=== PATIENT | female | born 1945 | race Caucasian/White ===

== ENCOUNTER 2017-10-15 13:20 | Inpatient (IN) | payer MEDICARE, MEDICAID ==
[2017-10-15 14:38] LABS: #Lymphocytes 1.4 thou/uL (1.20-3.40); #Monocytes 1.3 thou/uL (0.11-0.59); #Neutrophils 8.3 thou/uL (1.40-6.50); %Basophils 0.2 % (0.0-1.0); %Eosinophils 0.1 % (0.0-10.0); %Lymphocytes 12.9 % (21.0-51.0); %Monocytes 11.5 % (0.0-10.0); Hematocrit 36.5 % (36.0-47.0); Mean Platelet Volume 7.3 fL (7.4-10.4); Red Blood Cell (RBC) Count 3.83 mill/uL (4.20-5.40)
[2017-10-15 14:59] LABS: ALT (SGPT) 10 U/L (8-55); AST (SGOT) 15 U/L (5-34); Alkaline Phosphatase 70 U/L (40-150); Anion Gap 12 mmol/L (10-20); BUN (Urea Nitrogen) 15 mg/dL (9.8-20.1); Bilirubin, Total 0.8 mg/dL (0.2-1.2); CK (CPK) 32 U/L (29-168); Calc. Creatinine Clearance 0 mL/min (70-130); Carbon Dioxide 22 mmol/L (23-31); Chloride 109 mmol/L (98-107); Estimated GFR-MDRD 77; Globulin 2.9 g/dL (2.4-3.5); Protein, Total 5.9 g/dL (6.0-8.3)
[2017-10-15 15:03] LABS: Troponin I 0.012 ng/mL (< 0.028)
[2017-10-15 15:11] LABS: Lactic Acid - Sepsis 1.6 mmol/L (0.5-2.2)
[2017-10-15 15:14] LABS: Bilirubin Moderate (Negative); Blood, Urine Moderate (Negative); Glucose, Urine (Dipstick) Negative (Negative); Ketone, Urine Trace mg/dL (Negative); Nitrite Positive (Negative); Protein, Urine (Dipstick) 100 mg/dL (Neg-Trace)
--- NOTE | 2017-10-15 15:15 | RAD ---
PORTABLE CHEST: History: Cough. Comparison: 04-16-15 FINDINGS: Heart size is within normal limits. There are arthrosclerotic changes of the aorta. There are chronic lung changes seen. IMPRESSION: Chronic lung change. No acute process. POS: [facility]
[2017-10-15 15:16] LABS: Bacteria/HPF 1+ HPF (None Seen); Hyaline Casts/LPF 4-6 HYALINE CAST LPF (0-3 Hyaline); Squamous Epithelial 0-3 HPF (0-3)
--- NOTE | 2017-10-15 16:18 | CT ---
CT BRAIN PERFORMED WITHOUT CONTRAST ENHANCEMENT: History: Recent fall. Head trauma. Comparison: 04-16-15 FINDINGS: There is generalized ventricular and sulcal prominence with decreased attenuation of the periventricu lar white matter consistent with some chronic ischemic white matter change. A large calcified mass is seen along the left sphenoid and middle cranial fossa region. This is either a lobulated mass or two separate calcified masses, the largest which measures 3.4 cm. These appear to be extraaxial and are most compatible with calcified meningiomas. IMPRESSION: 1. No acute intracranial abnormalities. 2. Two densely calcified masses which appear to represent calcified meningiomas, stable in appearance as compared to the prior study. POS: [facility]
--- NOTE | 2017-10-15 16:21 | CT ---
CT OF CERVICAL SPINE PERFORMED WITHOUT CONTRAST ENHANCEMENT: History: Neck pain status post fall. FINDINGS: Vertebral bodies are normal in height. Degenerative disc narrowing is seen at C4-5, C5-6, and C6-7 wi th degenerative facet changes seen along the course of the spine. Facets are in normal alignment. The re is no evidence of central canal stenosis. There is some moderate bilateral foraminal narrowing at C5-6 and what appears to be some left sided extruded vacuum disc material at the level of the foramen . There is no CT evidence for fracture. Dense carotid calcifications are noted. Enlarged thyroid with large bilateral thyroid nodules are als o seen. IMPRESSION: 1. No CT evidence of fracture of the cervical spine. 2. Bilateral thyroid nodules. Ultrasound would be suggested on a non-emergent basis. 3. Dense carotid calcifications. 4. Emphysematous appearing lung changes. POS: [facility]
--- NOTE | 2017-10-15 17:52 | HP ---
PRIMARY CARE PHYSICIAN: Lamar Moreno, BOTTOM SCRUBBER-C CHIEF COMPLAINT: "All I wanted to do is sleep." HISTORY OF PRESENT ILLNESS: Ms. Hoskins is a pleasant 72-year-old female that has a history of COPD as well as mild coronary artery disease. She also has a history of urinary retention and a history of previous severe urinary tract infection. She was in her usual state of health until about 2-3 days a go when she says that she feels tired all the time and all she wants to do is sleep. She also feels generally weak and has also noted fairly poor appetite. She also admits to having some urinary frequ ency and feels that she has to get up to go to bathroom often and when she does, she has to hang on t o the side of the wall because she is afraid that she is going to fall. She denies any fevers or chi lls, but had felt some dizziness and her daughter was with her earlier and says that her mom had fall en and she seemed a little bit confused. She called EMS and when EMS arrived, the patient's heart ra te was in the 200s and appeared that she was in an SVT. They gave her adenosine in which she convert ed back to sinus rhythm and now she is being admitted for further evaluation and treatment. The boy ent denies any chest pain. She says that she is always short of breath, but it is about the same as usual. She has had a cough which she says is about the same and it is productive of clear sputum. T here is no leg pain or leg swelling and it is also noted in her previous hospital records, she has hahn d a cardiac catheterization about 6 months or so ago in which she was found to have some mild coronar y artery disease and is being treated medically. REVIEW OF SYSTEMS: CONSTITUTIONAL: She denies any subjective fever and chills. No night sweats, no weight loss, but she has had a poor appetite. HEENT: She denies any headache. She has had some di zziness, no visual changes, no sore throat, rhinorrhea, neck pain, no adenopathy. PULMONARY: She hahn s had cough as previously mentioned, which is productive of clear sputum, no chest pain, stable short ness of breath. CARDIOVASCULAR: She had an episode of rapid heartbeat earlier today around noon. S he denies feeling any palpitations in the past, no PND, no orthopnea. GASTROINTESTINAL: She denies any abdominal pain, no nausea, no vomiting. GENITOURINARY: She does complain of urinary frequency, but no dysuria. She does have urinary retention and has to self-catheterize and she does this anywhe re between 3 and 4 times a day. MUSCULOSKELETAL: No muscle pain, weakness or joint pains. NEUROLOG IC: No focal weakness, numbness, no seizures. PSYCHIATRIC: No symptoms of anxiety or depression. SKIN AND INTEGUMENT: No skin changes. No rash. PAST MEDICAL HISTORY: Significant for COPD with pulmonary function test demonstrating moderate obstr uctive lung disease, history of coronary artery disease treated medically as well as urinary retentio n with in and out self-catheterization. PAST SURGICAL HISTORY: Negative. ALLERGIES: No known drug allergies. FAMILY HISTORY: No history of any inheritable diseases. SOCIAL HISTORY: She lives alone. She continues to smoke about a pack a day. Prior to that, she smo ked anywhere from 2-1/2-3 packs a day for at least 40 years. Denies any alcohol use. She has 4 chil dren. She lives alone. Her daughter, Pinky Rios is her medical power of restaurant hourly manager. CURRENT MEDICATIONS: She is not sure of the names and dosages of her medicines, but she goes to the [facility] pharmacy in [place]. PHYSICAL EXAMINATION: GENERAL: She is alert and oriented. She appears to be in no acute distress. VITAL SIGNS: Her blood pressure was 108/71, heart rate 101, respiratory rate of 22, temperature is 9 9.5. HEENT: Her pupils are equal, round, and reactive. Extraocular muscles are intact. Her sclerae are anicteric. Throat no erythema, no exudates. She is edentulous and has dentures. Mucous membranes a re slightly dry. NECK: There is no adenopathy, no bruits. LUNGS: She has got some bilateral expiratory wheezing as well as some rhonchi, no rales. CARDIOVASCULAR: She has a normal S1 and S2. I did not appreciate an S3 or S4. No murmurs, no click s, no rubs. ABDOMEN: Soft, it is nontender, nondistended. Positive for bowel sounds. No rebound or guarding. Actually, she did have some mild lower midabdominal tenderness. EXTREMITIES: No edema. NEUROLOGIC: The exam is nonfocal. LABORATORY DATA AND IMAGING: Urinalysis was significant for 1+ bacteria, positive nitrites and too n umerous to count WBCs. White blood cell count 11, hemoglobin 12, hematocrit is 36.5, platelet count is 245. Troponin is 0.012. Lactic acid was 1.2. She had a CT scan of the brain which did not show any acute intracranial abnormalities. Stable calcified meningioma. She also had a CT scan of the C- spine showing bilateral thyroid nodules as well as emphysematous changes. ASSESSMENT AND PLAN: This is a 72-year-old female that presents with generalized weakness. This is likely as a result of urinary tract infection. She also had an episode of supraventricular tachycard ia with no known previous history of this. 1. With regard to the urinary tract infection, urine and blood cultures will be obtained. We will p lace her empirically on Rocephin and Levaquin and await final culture results. 2. Supraventricular tachycardia. She does have a history of mild coronary artery disease and she do es continue to smoke. She also has chronic obstructive pulmonary disease which could potentially agg ravate or cause supraventricular tachycardia. She will be monitored on telemetry and we will consult Dr. Bernabe whom she normally sees with regards to further management. Currently, she is in sinus. 3. Chronic obstructive pulmonary disease. She has chronic respiratory failure secondary to this. S he is not on oxygen at home. It does not appear that she has an acute flare, but we will monitor thi s closely and place her on DuoNeb as needed. We will also need to call her pharmacy to see what medi cation she normally takes. 4. History of urinary retention. We will continue in and out catheterizations at least 3-4 times a day and more if necessary. She has a history of acute renal failure in the past due to hydronephrosi s, but her renal function appears to be stable at this time with creatinine of 0.74. We will also ge t PT and OT consult to assess her overall strength and also place her on deep venous thrombosis as we ll as gastrointestinal prophylaxis.
[2017-10-15 18:13] LABS: Troponin I 0.019 ng/mL (< 0.028)
[2017-10-15] MEDS ORDERED: Ondansetron ODT 4 MG TAB PO PRN (19:06)
[2017-10-15] MEDS ORDERED: hydrALAZINE 20 MG/ML VIAL SLOW IVP PRN (19:06)
[2017-10-15] MEDS ORDERED: Temazepam 15 MG CAP PO PRN (19:06)
[2017-10-15] MEDS ORDERED: Ondansetron HCl/PF 4 MG/2 ML Vial IVP PRN (19:06)
[2017-10-15 19:10] VITALS: BMI 21.2
[2017-10-15] MEDS: Sodium Chloride 0.9% 1,000 ML IV SCH (19:56)
[2017-10-15] MEDS: Famotidine 20 MG TAB PO SCH (19:57)
[2017-10-15 21:07] LABS: Troponin I 0.017 ng/mL (< 0.028)
[2017-10-16] MEDS: Acetaminophen 325 MG TAB PO PRN ×2 (04:04→15:47)
[2017-10-16 05:27] LABS: #Basophils 0.1 thou/uL (0.0-0.2); #Eosinphils 0.1 thou/uL (0.0-0.7); #Lymphocytes 1.7 thou/uL (1.20-3.40); #Monocytes 1.4 thou/uL (0.11-0.59); #Neutrophils 7.3 thou/uL (1.40-6.50); %Basophils 0.5 % (0.0-1.0); %Eosinophils 0.5 % (0.0-10.0); %Lymphocytes 16.3 % (21.0-51.0); %Monocytes 12.9 % (0.0-10.0); Hematocrit 36.3 % (36.0-47.0); Mean Platelet Volume 7.6 fL (7.4-10.4); White Blood Cell (WBC) Count 10.5 thou/uL (4.8-10.8)
[2017-10-16 05:42] LABS: Anion Gap 12 mmol/L (10-20); BUN (Urea Nitrogen) 11 mg/dL (9.8-20.1); Calc. Creatinine Clearance 81 mL/min (70-130); Calcium 8.4 mg/dL (7.8-10.44); Carbon Dioxide 20 mmol/L (23-31); Chloride 107 mmol/L (98-107); Estimated GFR-MDRD Greater than 90
[2017-10-16] MEDS: Enoxaparin Sodium 40 MG/0.4 ML SYRINGE SC SCH (08:16)
[2017-10-16] MEDS: Famotidine 20 MG TAB PO SCH ×2 (08:16→21:14)
[2017-10-16] MEDS: Sodium Chloride 0.9% 1,000 ML IV SCH ×2 (08:17→21:20)
--- NOTE | 2017-10-16 09:53 | PDOC.PN ---
- Subjective Encounter Start Date: 10/16/17 Encounter Start Time: 09:52 Ms. Hoskins was seen today in follow-up of UTI, and Influenza A. She is feeling much better. She still has some cough, but is breathing ok. she also says her appetite has improved. - Objective Resuscitation Status: Resuscitation Status FULL:Full Resuscitation MAR Reviewed: Yes Vital Signs & Weight: Vital Signs (12 hours) Temp Pulse Resp BP Pulse Ox 10/16/17 07:45 98.4 F 83 20 95 10/16/17 07:00 98.4 F 83 20 109/55 L 95 10/16/17 05:55 99.2 F 10/16/17 04:03 102.2 F H 88 18 115/65 97 10/16/17 00:50 100.5 F H 80 18 95/57 L 95 Weight Weight 135 lb 8 oz I&O: 10/15/17 10/16/17 10/17/17 06:59 06:59 06:59 Intake Total 650 Output Total 800 Balance -150 Result Diagrams: 10/16/17 04:36 10/16/17 04:36 Phys Exam - Physical Examination HEENT: PERRLA + ronchi bilaterally no rales Cardiovascular: RRR, no significant murmur Gastrointestinal: soft, non-tender, positive bowel sounds Musculoskeletal: no edema Dx/Plan (1) E-coli UTI Code(s): N39.0 - URINARY TRACT INFECTION, SITE NOT SPECIFIED; B96.20 - UNSP ESCHERICHIA COLI THE CAUSE OF DISEASES CLASSD ELSWHR Status: Acute (2) SVT (supraventricular tachycardia) Code(s): I47.1 - SUPRAVENTRICULAR TACHYCARDIA Status: Acute (3) Influenza A Code(s): J10.1 - FLU DUE TO OTH IDENT INFLUENZA VIRUS W OTH RESP MANIFEST Status: Acute (4) Chronic respiratory failure Code(s): J96.10 - CHRONIC RESPIRATORY FAILURE, UNSP W HYPOXIA OR HYPERCAPNIA Status: Chronic (5) COPD (chronic obstructive pulmonary disease) Status: Chronic (6) Urinary retention Code(s): R33.9 - RETENTION OF URINE, UNSPECIFIED Status: Chronic - Plan * UTI due to E. Coli- continue Levaquin and Rocephin pending sensitivities * Influenza A- will start Tamiflu * SVT- she has not had any further recurrences, will however ask her [employer] to evaluate her * COPD with chronic respiratory failure- stable- will re-start her home medications * PT.
[2017-10-16] MEDS ORDERED: Oseltamivir 75 MG CAP PO SCH ×2 (10:00→12:00)
[2017-10-16] MEDS: cefTRIAXone\\ROCEPHIN 2 GM in Sodium Chloride 0.9% 100 ML IVPB SCH (15:47)
[2017-10-16] MEDS: Diltiazem 125 MG in Sodium Chloride 0.9% 100 ML IVPB SCH (17:54)
--- NOTE | 2017-10-16 19:06 | CON ---
CARDIOLOGY CONSULTATION DATE OF CONSULTATION: 10/16/2017 REASON FOR CONSULTATION: SVT. PRIMARY CONTROL PANEL ASSEMBLER: Gordo Bernabe M.D. HISTORY OF PRESENT ILLNESS: Ms. Hoskins is a very pleasant 72-year-old white female, who comes to the hospital for not feeling well. She called 911 as she had been feeling herself, she was feeling very weak for about 3 days. When EMS came to her house, she was found to be in SVT, heart rates in the 20 0s. They gave her a dose of IV adenosine, which broke her back into sinus rhythm. She was brought i n for evaluation. She was found to have a urinary tract infection, positive for E. coli. She was al so found to have positive antigens for influenza A virus. She has been treated for both at this time . During her admission, she had several bouts of paroxysmal supraventricular tachycardia, heart rate s in the 160s lasting anywhere from 30 seconds to 4 minutes the longest one. She is symptomatic duri ng the episodes. She feels a little lightheaded and feels just tired and short of breath during the episode. She does have a history of COPD and mild coronary artery disease from a heart catheterizati on that was done recently. It showed no significant flow-limiting disease. PAST MEDICAL HISTORY: 1. Mild CAD. 2. Chronic obstructive pulmonary disease. 3. History of urinary retention with in and out self catheterizations. PAST SURGICAL HISTORY: None. ALLERGIES: No known drug allergies. FAMILY HISTORY: Noncontributory. SOCIAL HISTORY: Smokes about a pack a day, but much less in the past which was about little over 2 p acks a day for the last 40 years. No alcohol or drug use. OUTPATIENT MEDICATIONS: Include: 1. Formoterol 1 puff inhalation p.r.n. 2. Lexapro 10 mg a day. 3. Albuterol inhaler p.r.n. 4. Gemini oxide. 5. Loperamide 2 mg p.o. p.r.n. diarrhea. REVIEW OF SYSTEMS: A 12-point review of systems was done and is all negative unless stated in the hi story of present illness. PHYSICAL EXAMINATION: VITAL SIGNS: Temperature 98.4, pulse 98, respiration rate 24, satting 94% on 2 liters, blood pressur e 124/58. GENERAL: Awake, alert, oriented x3, in no distress. HEENT: Normocephalic, atraumatic. NECK: Supple. LUNGS: Have reduced breath sounds bilaterally. CARDIOVASCULAR: Heart rates in the 160s on my evaluation, goes in and out of SVT. There is a grade 2/6 systolic murmur at the right sternal border. ABDOMEN: Soft, positive bowel sounds. EXTREMITIES: No edema. SKIN: Warm and dry LABORATORY WORK: Reviewed. White count of 11 on arrival, down to 10.5, hemoglobin 12, hematocrit 36 and platelet count 245. Chemistry is unremarkable. Troponin is negative x3. Normal GFR. Albumin of 3.0. Urine culture was positive for E. coli. Influenza A had a positive antigen. EKG shows SVT in sinus rhythm. Chest x-ray was unremarkable. ASSESSMENT AND PLAN: 1. Supraventricular tachycardia, paroxysmal: We will start on diltiazem drip at this time. We woul d avoid calcium channel blockers due to her history of chronic obstructive pulmonary disease; however , she probably will be able to tolerate them as needed. We will start with diltiazem at 5 mg an hour for now and she actually fairs with this. She has been having a lot more paroxysmal SVTs since her antibiotics were started. 2. Influenza type A. 3. Urinary tract infection, complicated from frequent self-catheterization. 4. History of chronic obstructive pulmonary disease, stable now. RECOMMENDATIONS: 1. Diltiazem drip started 5 mg an hour. 2. EP consultation for consideration of ablation versus medical therapy. 3. Echocardiogram to be repeated. 4. We will follow. Thank you for letting us to participate in the care of your patient. We will follow.
[2017-10-16] MEDS: Oseltamivir 75 MG CAP PO SCH (21:14)
[2017-10-16] MEDS: Magnesium Oxide 400 MG TAB PO SCH (21:14)
[2017-10-17 05:03] LABS: #Eosinphils 0.1 thou/uL (0.0-0.7); #Neutrophils 4.3 thou/uL (1.40-6.50); %Basophils 0.1 % (0.0-1.0); %Eosinophils 1.6 % (0.0-10.0); %Lymphocytes 27.1 % (21.0-51.0); Mean Platelet Volume 7.5 fL (7.4-10.4); Red Blood Cell (RBC) Count 3.69 mill/uL (4.20-5.40); White Blood Cell (WBC) Count 7.4 thou/uL (4.8-10.8)
[2017-10-17] MEDS: Acetaminophen 325 MG TAB PO PRN (05:03)
[2017-10-17] MEDS: Sodium Chloride 0.9% 1,000 ML IV SCH ×2 (05:04→20:45)
[2017-10-17 05:27] LABS: Anion Gap 12 mmol/L (10-20); BUN (Urea Nitrogen) 5 mg/dL (9.8-20.1); Calc. Creatinine Clearance 87 mL/min (70-130); Calcium 8.4 mg/dL (7.8-10.44); Carbon Dioxide 24 mmol/L (23-31); Chloride 105 mmol/L (98-107); Estimated GFR-MDRD Greater than 90
[2017-10-17] MEDS ORDERED: FORMOTEROL INH PRN (08:09)
[2017-10-17] MEDS ORDERED: [UNRECOGNIZED DRUG - OTHER] INH PRN (08:09)
[2017-10-17] MEDS ORDERED: FORMOTEROL INH SCH (09:00)
[2017-10-17] MEDS ORDERED: [UNRECOGNIZED DRUG - OTHER] INH SCH (09:00)
--- NOTE | 2017-10-17 09:45 | PDOC.PN ---
- Subjective Encounter Start Date: 10/17/17 Encounter Start Time: 09:44 Ms. Hoskins was seen today in follow-up of UTI and SVT. She is feeling better. She says her appetite has improved. She has less cough and congestion. - Objective Resuscitation Status: Resuscitation Status FULL:Full Resuscitation MAR Reviewed: Yes Vital Signs & Weight: Vital Signs (12 hours) Temp Pulse Resp BP Pulse Ox 10/17/17 07:37 97.0 F L 72 18 97 10/17/17 07:35 97.0 F L 72 18 107/55 L 97 10/17/17 04:00 99.3 F 76 16 120/59 L 97 Weight Weight 135 lb 8 oz I&O: 10/16/17 10/17/17 10/18/17 06:59 06:59 06:59 Intake Total 650 1570 Output Total 800 1800 Balance -150 -230 Result Diagrams: 10/17/17 04:03 10/17/17 04:03 Phys Exam - Physical Examination HEENT: PERRLA Respiratory: no wheezing, no rales + scattered rhonchi Cardiovascular: RRR, no significant murmur Gastrointestinal: soft, non-tender, positive bowel sounds Musculoskeletal: no edema Dx/Plan (1) E-coli UTI Code(s): N39.0 - URINARY TRACT INFECTION, SITE NOT SPECIFIED; B96.20 - UNSP ESCHERICHIA COLI THE CAUSE OF DISEASES CLASSD ELSWHR Status: Acute (2) SVT (supraventricular tachycardia) Code(s): I47.1 - SUPRAVENTRICULAR TACHYCARDIA Status: Acute (3) Influenza A Code(s): J10.1 - FLU DUE TO OTH IDENT INFLUENZA VIRUS W OTH RESP MANIFEST Status: Acute (4) Chronic respiratory failure Code(s): J96.10 - CHRONIC RESPIRATORY FAILURE, UNSP W HYPOXIA OR HYPERCAPNIA Status: Chronic (5) COPD (chronic obstructive pulmonary disease) Status: Chronic (6) Urinary retention Code(s): R33.9 - RETENTION OF URINE, UNSPECIFIED Status: Chronic - Plan * UTI- urine culture was positive for E. coli which is sensitive to Rocephin and quinolones * Will discontinue Levaquin and Continue Rocephin * SVT- patient had another episode yesterday, and has been started on a Cardizem drip * EP consult is pending * Influenza A- she is on Tamiflu, and says her symptoms are improving * COPD- stable * replace K+.
[2017-10-17] MEDS: Magnesium Oxide 400 MG TAB PO SCH ×2 (09:54→20:45)
[2017-10-17] MEDS: Famotidine 20 MG TAB PO SCH ×2 (09:54→20:45)
[2017-10-17] MEDS: Enoxaparin Sodium 40 MG/0.4 ML SYRINGE SC SCH (09:54)
[2017-10-17] MEDS: Oseltamivir 75 MG CAP PO SCH ×2 (09:54→20:45)
[2017-10-17] MEDS: Escitalopram Oxalate 20 mg Tablet PO SCH (09:54)
[2017-10-17] MEDS: cefTRIAXone\\ROCEPHIN 2 GM in Sodium Chloride 0.9% 100 ML IVPB SCH (16:05)
[2017-10-17] MEDS: Diltiazem 125 MG in Sodium Chloride 0.9% 100 ML IVPB SCH (16:05)
[2017-10-17] MEDS: Potassium Chloride 20 MEQ TAB PO SCH (16:09)
--- NOTE | 2017-10-17 18:40 | PDOC.CTH ---
Cardiology Progress Note - Subjective Doing well. She has not had more episodes of SVT since starting diltiazem. - Objective Vital Signs Temp Pulse Pulse Pulse Resp BP BP 10/17/17 16:15 97.6 F 78 18 10/17/17 13:36 10/17/17 10:55 97 F L 72 26 H 10/17/17 08:25 74 78 135/60 135/51 L 10/17/17 07:37 97.0 F L 72 18 10/17/17 07:35 97.0 F L 72 18 BP Pulse Ox Pulse Ox Pulse Ox 10/17/17 16:15 136/70 96 10/17/17 13:36 94 L 96 10/17/17 10:55 136/61 100 10/17/17 08:25 10/17/17 07:37 97 10/17/17 07:35 107/55 L 97 Weight 135 lb 8 oz 10/16/17 10/17/17 10/18/17 06:59 06:59 06:59 Intake Total 650 1570 1710 Output Total 800 1800 400 Balance -150 -230 1310 - Physical Examination General/Neuro: alert & oriented x3, NAD Neck: no JVD present Lungs: unlabored respirations Heart: RRR Abdomen: NT/ND Extremities: other: (no edema.) - Telemetry Telemetry Rhythm: NSR - Labs Result Diagrams: 10/17/17 04:03 10/17/17 04:03 Troponin/CKMB CK-MB (CK-2) 0.7 ng/mL (0-6.6) 10/15/17 14:28 Troponin I 0.017 ng/mL (< 0.028) 10/15/17 20:30 - Assessment/Plan 1. SVT 2. Influenza A 3. UTI 4. Hypokalemia. PLAN: - Will switch diltiazem to PO. - Replace K - Continue other meds.
[2017-10-17] MEDS: Diltiazem HCl SR 60 mg Capsule PO SCH (20:45)
[2017-10-17] MEDS ORDERED: Guaifenesin DM 100-10/5 ML UDCUP PO PRN (21:40)
--- NOTE | 2017-10-18 06:02 | CON ---
DATE OF CONSULTATION: 10/17/2017 ELECTROPHYSIOLOGY CONSULTATION REPORT REFERRING PHYSICIAN: Dr. Bernabe. I am seeing Ms. 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 Her problems are: 1. Episode of SVT, possibly paroxysmal atrial tachycardia versus atrial flutter with variable AV con duction is documented on telemetry strips. A. Adenosine was also seemed to have terminated the arrhythmia. 2. Current illness with influenza. 3. Apparent normal LVEF on echocardiogram today. 4. History of mild coronary artery disease. 5. History of chronic obstructive pulmonary disease. ALLERGIES: None noted. MEDICATIONS AT HOME: Included loperamide, magnesium, formoterol fumarate, albuterol, and escitalopra m. SUBJECTIVE: Ms. Hoskins is here with symptoms of flu. She is generally weak and poor appetite. She h ad some increased urinary frequency, some dizziness noted. She did not notice any fevers or chills. On arrival to the ER, she was noted to have heart rates in the 200's and adenosine was given and she was converted back to the sinus rhythm. She did not have any chest pains with this episode. She hahn d no PND, orthopnea, no stroke-like symptoms noted. She does have clear productive sputum. Has no P ND, orthopnea, or lower extremity or sinus fluid overload. REVIEW OF SYSTEMS: The rest of 12-point review of systems, otherwise unremarkable. SOCIAL HISTORY: Patient is a current smoker, 1 pack per day. Denies ETOH or drug use. PAST MEDICAL HISTORY: Significant for urinary retention and chronic UTIs, left heart catheterization about 6 months ago. OBJECTIVE DATA: VITAL SIGNS: Blood pressure 136/61, heart rate 73, respirations 26, temperature 97 degrees Fahrenhei t. GENERAL: She is alert and oriented woman with no apparent distress. NECK: Supple. Jugular veins are not distended. CHEST: Coarse, no crackles. CARDIOVASCULAR: Heart sounds are regular to rate and rhythm. No murmur or gallop. ABDOMEN: Benign. Bowel sounds positive. EXTREMITIES: Lower extremities without edema, clubbing, or cyanosis. DATABASE: EKGs reveal sinus rhythm. No significant ST-T changes. Telemetry strips reveal episode o f rapid narrow-complex tachycardia to 160 beats per minute, intermittently lasting from 30 seconds to 4 minutes. Occasionally, variable rates are seen with underlying visible. ASSESSMENT AND PLAN: Ms. Hoskins is a 72-year-old woman with a history of mild coronary artery disease , otherwise no significant heart disease. No prior history of palpitations or arrhythmias, who is pr esenting with weakness and dizzy symptoms, was noted to be positive for having the flu. She also had episodes of narrow-complex tachyarrhythmias, which was terminated with adenosine. On the other hand , the telemetry strips more inconsistent with the paroxysmal atrial tachycardia or atrial flutter. S he was placed on diltiazem and her rates are controlled and no frequent recurrences are seen. At this point, I would agree with the medical management. Diltiazem IV could be transitioned to p.o. dosages. If necessary, digoxin also could be used. Beta-blockers are a possibility, but she appare ntly has some COPD, and this should be used with caution. Alternatively, flecainide could be also added if necessary. After recovery, and if her symptoms cont inue, we could consider invasive options like EP study and ablation. These issues were discussed wit h her. We will follow up with you. Thank you for the consult.
[2017-10-18] MEDS ORDERED: Arformoterol 15 MCG/2 ML NEB NEB SCH (06:30)
[2017-10-18 08:46] VITALS: TEMP 98.3
[2017-10-18] MEDS: Potassium Chloride 20 MEQ TAB PO SCH (08:46)
[2017-10-18] MEDS: Diltiazem HCl SR 60 mg Capsule PO SCH (08:46)
[2017-10-18] MEDS: Famotidine 20 MG TAB PO SCH (08:47)
[2017-10-18] MEDS: Magnesium Oxide 400 MG TAB PO SCH (08:47)
[2017-10-18] MEDS: Enoxaparin Sodium 40 MG/0.4 ML SYRINGE SC SCH (08:47)
[2017-10-18] MEDS: Oseltamivir 75 MG CAP PO SCH (08:47)
--- NOTE | 2017-10-18 09:02 | PDOC.CTH ---
Cardiology Progress Note - Subjective She is feeling better. - Objective Vital Signs Temp Pulse Resp BP Pulse Ox 10/18/17 08:43 98.3 F 82 20 119/57 L 96 10/18/17 07:44 72 20 96 10/18/17 04:02 97.5 F L 72 18 112/58 L 95 Weight 132 lb 10/17/17 10/18/17 10/19/17 06:59 06:59 06:59 Intake Total 1570 2488 Output Total 1800 850 Balance -230 1638 - Physical Examination General/Neuro: alert & oriented x3, NAD Neck: no JVD present Lungs: unlabored respirations Heart: RRR Abdomen: NT/ND Extremities: + edema B (no edema) - Telemetry Telemetry Rhythm: NSR - Labs Result Diagrams: 10/17/17 04:03 10/17/17 04:03 Troponin/CKMB CK-MB (CK-2) 0.7 ng/mL (0-6.6) 10/15/17 14:28 Troponin I 0.017 ng/mL (< 0.028) 10/15/17 20:30 - Assessment/Plan 1. SVT 2. Influenza A 3. UTI 4. Hypokalemia. PLAN: - Continue diltiazem PO. - Replace K - Continue other meds.
[2017-10-18] MEDS: Escitalopram Oxalate 20 mg Tablet PO SCH (10:37)
[2017-10-18] MEDS: Sodium Chloride 0.9% 1,000 ML IV SCH (10:44)
--- NOTE | 2017-10-18 11:25 | PDOC.PN ---
- Subjective Encounter Start Date: 10/18/17 Encounter Start Time: 11:23 Ms. Hoskins says she is feeling fine. No complaints. she says the cough has improved. - Objective Resuscitation Status: Resuscitation Status FULL:Full Resuscitation MAR Reviewed: Yes Vital Signs & Weight: Vital Signs (12 hours) Temp Pulse Resp BP Pulse Ox 10/18/17 08:43 98.3 F 82 20 119/57 L 96 10/18/17 07:44 72 20 96 10/18/17 04:02 97.5 F L 72 18 112/58 L 95 Weight Weight 132 lb I&O: 10/17/17 10/18/17 10/19/17 06:59 06:59 06:59 Intake Total 1570 2488 Output Total 1800 850 Balance -230 1638 Result Diagrams: 10/17/17 04:03 10/17/17 04:03 Phys Exam - Physical Examination HEENT: PERRLA Respiratory: no wheezing, no rales, no rhonchi, clear to auscultation bilateral Cardiovascular: RRR, no significant murmur, no rub Gastrointestinal: soft, non-tender, positive bowel sounds Musculoskeletal: no edema Dx/Plan (1) E-coli UTI Code(s): N39.0 - URINARY TRACT INFECTION, SITE NOT SPECIFIED; B96.20 - UNSP ESCHERICHIA COLI THE CAUSE OF DISEASES CLASSD ELSWHR Status: Acute (2) SVT (supraventricular tachycardia) Code(s): I47.1 - SUPRAVENTRICULAR TACHYCARDIA Status: Acute (3) Influenza A Code(s): J10.1 - FLU DUE TO OTH IDENT INFLUENZA VIRUS W OTH RESP MANIFEST Status: Acute (4) Chronic respiratory failure Code(s): J96.10 - CHRONIC RESPIRATORY FAILURE, UNSP W HYPOXIA OR HYPERCAPNIA Status: Chronic (5) COPD (chronic obstructive pulmonary disease) Status: Chronic (6) Urinary retention Code(s): R33.9 - RETENTION OF URINE, UNSPECIFIED Status: Chronic - Plan * UTI- due to E Coli which is sensitive to Cephalosporins * SVT- she has been in sinus rhythm for the past two days on Cardizem * Discussed with Dr. Bernabe- she is stable for discharge home..
--- NOTE | 2017-10-18 12:48 | DIS ---
PRIMARY CARE PHYSICIAN: Dr. Lamar Moreno DATE OF ADMISSION: 10/15/2017 DATE OF DISCHARGE: 10/18/2017 DISCHARGE DISPOSITION: Home with home health. PRIMARY DISCHARGE DIAGNOSES: 1. Urinary tract infection with sepsis and this is a complicated urinary tract infection due to urin anil retention. 2. Urinary retention with the need for in and out self-catheterization. 3. Influenza A. 4. Supraventricular tachycardia. 5. Chronic obstructive pulmonary disease with chronic respiratory failure. PROCEDURES DONE DURING ADMISSION: The patient had a CT scan of the brain showing no acute intracrani al abnormalities. There was a stable calcified meningioma. She had a CT scan of the cervical spine showing no evidence of any fracture and bilateral thyroid nodules. CODE STATUS: Full code. ALLERGIES: No known drug allergies. HOSPITAL COURSE: Ms. Hoskins is a pleasant 72-year-old female that presented to the emergency room wit h generalized weakness and lethargy and hypersomnolence. She was found to have a urinary tract infec tion due to Escherichia coli. She has a history of urinary retention and has to in and out bladder c atheterize. She was treated for this. Urine cultures eventually grew E. coli which was sensitive to cephalosporins. She also developed supraventricular tachycardia. She was seen by Cardiology as wel l as Electrophysiology for this. She was placed on Cardizem which controlled her heart rhythm and ac tually she converted back to sinus. It was stated that if she has recurrent SVT she could be placed on flecainide or digoxin and if this was not helpful then consider ablation at that point. The patie nt is now stable for discharge and is to have follow up with Dr. Bernabe in 1 month and also with her primary care physician in 1-2 weeks.
--- NOTE | 2017-10-18 12:52 | EKG ---
Test Reason : Blood Pressure : / mmHG Vent. Rate : 078 BPM Atrial Rate : 078 BPM P-R Int : 132 ms QRS Dur : 078 ms QT Int : 406 ms P-R-T Axes : 082 075 073 degrees QTc Int : 462 ms Normal sinus rhythm Normal ECG When compared with ECG of 15-OCT-2017 13:27, (Unconfirmed) Premature atrial complexes are no longer Present Confirmed by VIPIN SILVER ([id number]) on 10/18/2017 12:51:35 PM Referred By: MINDY Confirmed By:VIPIN SILVER
[2017-10-18 16:54] VITALS: BP 138/86
--- NOTE | 2017-10-18 19:48 | PRG ---
DATE OF SERVICE: 10/18/2017 SUBJECTIVE: Ms. Hoskins has been doing well, recovering from her flu like symptoms. No further arrhyt hmias noted, on oral diltiazem. OBJECTIVE: VITAL SIGNS: Blood pressure 119/57, heart rate 82, respirations 20, temperature 98.2 degrees Fahrenh eit. GENERAL: Alert and oriented woman in no apparent distress. NECK: Supple. Jugular veins not distended. CHEST: Coarse, no crackles. CARDIOVASCULAR: Heart sounds are regular to rate and rhythm. No murmur, gallop, or rub. ABDOMEN: Benign. Bowel sounds positive. EXTREMITIES: Lower extremities without edema, clubbing or cyanosis. DATABASE: Telemetry strips reveal sinus rhythm. No significant atrial arrhythmias noted. ASSESSMENT AND PLAN: Ms. Hoskins is a pleasant 72-year-old woman with history of recurrent as we ll as urinary tract infection, during which she developed a supraventricular tachyarrhythmia runs. S he was treated with diltiazem. We are suspecting it, paroxysmal atrial tachycardia versus atrial flu tter in the etiology. For now, she is doing well on medical therapy. ID would continue the same, bu t routine follow up is requested especially if symptoms continue.
--- NOTE | 2017-10-19 13:50 | PQF ---
CLINICAL DOCUMENTATION IMPROVEMENT CLARIFICATION FORM: ICD-10 Updated PLEASE DO AN ADDENDUM TO THE PROGRESS NOTE WITH ANY DOCUMENTATION UPDATES OR ADDITIONS AND CARRY THROUGH TO DC SUMMARY. THANK YOU. DATE: 10/19/17 ATTN: DR. ESTRELLA Please exercise your independent, professional judgment in responding to the clarification form. Clinical indicators are provided on the bottom of this form for your review Please check appropriate box(s): [X ] Sepsis due to: [ X ] UTI [ ] D/T IN & OUT SELF CATHS [ ] NOT D/T IN & OUT SELF CATHS [ ] SIRS due to non-infectious process (please specify etiology) [X ] Severe sepsis with acute organ dysfunction of: Acute renal failure (Examples: respiratory failure, encephalopathy, acute kidney failure, other) [ ] Localized infection without sepsis [ ] Other diagnosis [ ] Unable to determine In addition, please specify: Present on Admission (POA): [X ] Yes [ ] No [ ] Unable to determine For continuity of documentation, please document condition throughout progress notes and discharge summary. Thank You. CLINICAL INDICATORS - SIGNS / SYMPTOMS / LABS H&P 10/15: "HISTORY OF URINARY RETENTION. WE WILL CONTINUE IN AND OUT CATHETERIZATIONS AT LEAST 3-4 TIMES A DAY AND MORE IF NECESSARY." DC SUMMARY: "URINARY TRACT INFECTION WITH SEPSIS AND THIS IS A COMPLICATED URINARY TRACT INFECTION DUE TO URINARY RETENTION." RISKS: UTI TREATMENT: IV ROCEPHIN (ER) IV FLUIDS URINE CULTURES (This form is maintained as a part of the permanent medical record) 2014 [facility]. All Rights Reserved TAI [email or web address] Office: [phone] [facility]
--- NOTE | 2017-11-11 10:42 | EKG ---
Test Reason : Blood Pressure : / mmHG Vent. Rate : 100 BPM Atrial Rate : 100 BPM P-R Int : 112 ms QRS Dur : 072 ms QT Int : 344 ms P-R-T Axes : 072 065 054 degrees QTc Int : 443 ms Sinus rhythm with Premature atrial complexes Otherwise normal ECG Confirmed by OPAL MISTRY M.D. ([id number]), scientific publications editor PEG VIERA ([id number]) on 11/11/2017 10:41:42 AM Referred By: Confirmed By:OPAL MISTRY M.D.
== END 2017-10-18 18:08 | disposition home health service (06) | DRG 872 ==
LOC: ERS 13:20 → 2NO 17:00
PROVIDERS: ADMIT Internal Medicine; ATTEND Internal Medicine
DX: A41.9 Sepsis, unspecified organism (principal); N17.9 Acute kidney failure, unspecified; J96.11 Chronic respiratory failure with hypoxia; N39.0 Urinary tract infection, site not specified; I47.1 Supraventricular tachycardia; R65.20 Severe sepsis without septic shock; J44.9 Chronic obstructive pulmonary disease, unspecified; E86.0 Dehydration; F17.210 Nicotine dependence, cigarettes, uncomplicated; I25.10 Atherosclerotic heart disease of native coronary artery without angina pectoris; R33.9 Retention of urine, unspecified; J10.1 Influenza due to other identified influenza virus with other respiratory manifestations; B96.20 Unspecified Escherichia coli [E. coli] as the cause of diseases classified elsewhere; E87.6 Hypokalemia
CPT/HCPCS: 36415; 51701; 70450; 71010; 72125; 80048; 80053; 81003; 81015; 82553; 83605; 84484; 85025; 87040; 87077; 87081; 87086; 87186; 87430; 93005; 93010; 93306; 94640; 94760; 96361; 96374; A4353; G8978-GP-CM; G8979-GP-CK; G8987-GO-CI; G8988-GO-CI; G8989-GO-CI; J0696; J1650; J1956; J7050; J7606; J7620

== ENCOUNTER 2018-01-02 08:27 | Outpatient (CLI) | payer MEDICARE, MEDICAID | END 2018-01-02 08:28 | disposition home or self-care (01) | LOC: BICMAMMO 08:27 | PROVIDERS: ATTEND Nurse Practitioner Family | DX: Z12.31 Encounter for screening mammogram for malignant neoplasm of breast (principal); R92.1 Mammographic calcification found on diagnostic imaging of breast | CPT/HCPCS: 77063; 77067 ==

== ENCOUNTER 2018-01-25 10:31 | Outpatient (CLI) | payer MEDICARE, MEDICAID ==
--- NOTE | 2018-01-25 13:02 | RAD ---
LUMBAR SPINE 2 VIEWS: HISTORY: A 72-year-old female with a history of low back pain and weak legs with fall onto buttocks. COMPARISON: 12/29/17. FINDINGS: Mild stable vertical height loss of L1. Considerable disk space narrowing at L3-L4, L4-L5, and L5-S1 levels. Mild levoscoliosis. Focal aneurysmal dilatation of the infrarenal abdominal aorta. IMPRESSION: Stable-appearing lumbar spine with spondylosis and some levoscoliosis and stable mild vertical height loss of L1. Focal aneurysm/atherosclerotic ectatic changes of the infrarenal abdominal aorta. POS: CJ
== END 2018-01-25 10:32 | disposition home or self-care (01) ==
LOC: TBSIIMAG 10:31
PROVIDERS: ATTEND Neurological Surgery
DX: M48.56XA Collapsed vertebra, not elsewhere classified, lumbar region, initial encounter for fracture (principal); M47.896 Other spondylosis, lumbar region
CPT/HCPCS: 72100

== ENCOUNTER 2018-03-13 11:54 | Outpatient (CLI) | payer MEDICARE, MEDICAID ==
--- NOTE | 2018-03-13 13:34 | CT ---
CHEST CT SCAN WITHOUT IV CONTRAST: HISTORY: A 72-year-old female with a history of follow-up pulmonary nodule. History of COPD. COMPARISON: 02/20/2017 FINDINGS: Stable bilateral hyperinflation and chronic lung changes, including bilateral emphysema changes. Sta ble somewhat curvilinear scar in the right apex. Multiple stable calcified granulomata. Stable bila teral adrenal low attenuation nodules. Stable three-vessel coronary artery calcific disease. Small, stable, somewhat poorly circumscribed, 0.4 cm nodule in the left upper lobe. In addition, there is a second slightly smaller, 0.3 cm in diameter nodule in the left upper lobe, neither of which are amberly cified. There are some small, nodular, pleural-based, parenchymal changes bilaterally. Stable bilat eral nonobstructing renal calculi and left renal cysts and a small hiatal hernia. IMPRESSION: 1. Hyperinflation and chronic lung changes with some bullous emphysema changes. 2. Bilateral old granuloma calcification changes, as well as some small, stable, poorly circumscribe d nodules, particularly in the left upper lobe, less than 0.4 cm in size. 3. Stable irregular scar in the right upper lobe. 4. Multiple other stable findings involving the chest and abdomen as above. 5. No new process. POS: CJ
== END 2018-03-13 11:55 | disposition home or self-care (01) ==
LOC: CT 11:54
PROVIDERS: ATTEND Internal Medicine
DX: J44.9 Chronic obstructive pulmonary disease, unspecified (principal); R91.1 Solitary pulmonary nodule; Z72.0 Tobacco use; J98.4 Other disorders of lung
CPT/HCPCS: 71250

== ENCOUNTER 2018-03-14 13:19 | Outpatient (CLI) | payer MEDICARE, MEDICAID ==
--- NOTE | 2018-03-14 14:56 | RAD ---
TWO VIEWS LUMBAR SPINE: HISTORY: The patient fell a few months ago. Followup exam. COMPARISON: 01/25/18. FINDINGS: Five lumbar-type vertebral bodies are redemonstrated. Stable anterolisthesis of L4 upon L5. Stable degenerative changes and atherosclerosis. No evidence of fracture. No retropulsion. IMPRESSION: No evidence of fracture. If there is concern, consider MRI. POS: RODRIGO
== END 2018-03-14 13:20 | disposition home or self-care (01) ==
LOC: TBSIIMAG 13:19
PROVIDERS: ATTEND Neurological Surgery
DX: M54.9 Dorsalgia, unspecified (principal)
CPT/HCPCS: 72100

== ENCOUNTER 2019-01-15 10:46 | Outpatient (CLI) | payer MEDICARE, OTHER ==
--- NOTE | 2019-01-15 14:59 | MMO ---
FILMS COMPARED: The present examination has been compared to prior imaging studies performed at [facility] on 01/02/2018, and at [facility] on 09/21/2015. MAMMOGRAM FINDINGS: There are scattered fibroglandular densities. Finding 1: There are vascular calcifications seen in both breasts. Finding 2: There are benign appearing calcifications seen in both breasts. There are no suspicious masses, calcifications or areas of architectural distortion. IMPRESSION: ALL ABOVE FINDINGS ARE BENIGN. A ROUTINE FOLLOW-UP MAMMOGRAM IN 1 YEAR IS RECOMMENDED. ACR BI-RADS Category 2 - Benign finding
== END 2019-01-15 10:47 | disposition home or self-care (01) ==
LOC: BICMAMMO 10:46
PROVIDERS: ATTEND Nurse Practitioner Family
DX: Z12.31 Encounter for screening mammogram for malignant neoplasm of breast (principal); R92.1 Mammographic calcification found on diagnostic imaging of breast
CPT/HCPCS: 77063; 77067

== ENCOUNTER 2019-03-27 13:38 | Outpatient (CLI) | payer MEDICARE, MEDICAID ==
--- NOTE | 2019-03-27 14:15 | CT ---
EXAM: CT chest without contrast per low-dose cancer screening protocol HISTORY: History of smoking and nicotine dependence; greater than 50 pack-year smoking history COMPARISON: None TECHNIQUE: Multiple contiguous axial images were obtained in a CT of the chest without contrast per l ow-dose cancer screening protocol. Sagittal and coronal reformats were performed. FINDINGS: Pulmonary nodules: Numerous scattered calcified granulomas are seen in the lungs. There is a noncalci fied 9 mm nodule in the left upper lobe on image 67 of 272. Emphysematous changes are seen in the lungs. Scarring is seen in the right apex.. No focal infiltrates are seen. Pleural space: No pneumothorax or pleural effusion are seen. Heart: The heart is normal in size. Mediastinum: No hilar or mediastinal lymphadenopathy appreciated on this limited noncontrast examinat ion. There are calcified bilateral hilar and bilateral mediastinal lymph nodes. Bones: Degenerative changes in the spine. Visualized subdiaphragmatic structures: Calcified granulomas in the liver. 4.1 cm left renal cyst. No nobstructing bilateral renal calculi measuring up to 4 mm in size on the right.. IMPRESSION: 1. Lung RADS category 4A-suspicious. The solid noncalcified nodule in the left upper lobe should be e valuated further with a PET/CT or can be followed in 3 months with a repeat [address]. 2. Nonobstructing bilateral renal calculi - category S
== END 2019-03-27 13:39 | disposition home or self-care (01) ==
LOC: CT 13:38
PROVIDERS: ATTEND Nurse Practitioner Family
DX: F17.210 Nicotine dependence, cigarettes, uncomplicated (principal); R91.1 Solitary pulmonary nodule; N20.0 Calculus of kidney
CPT/HCPCS: G0297

== ENCOUNTER 2019-05-15 13:32 | Outpatient (CLI) | payer MEDICARE, OTHER ==
--- NOTE | 2019-05-15 15:15 | BD ---
Exam: DEXA Bone Density 05/15/19 HISTORY: Age-related osteoporosis without pathologic fracture. COMPARISON: DEXA study from 2016. FINDINGS: Lumbar Spine: BMD (g/cm2) T-SCORE Z-SCORE L1 0.823 -1.5 0.6 L2 0.840 -1.7 0.6 L3 0.786 -2.7 -0.2 L4 0.866 -1.8 0.8 L1-L4 0.831 -2.0 0.4 WHO classification: Osteopenia. Left Femoral Neck: 0.578 -2.4 -0.4 Total Left Femur: 0.577 -3.0 -1.2 WHO classification: Osteoporosis. Impression: Osteoporosis with elevated fracture risk. POS: CJ
== END 2019-05-15 13:33 | disposition home or self-care (01) ==
LOC: BICMAMMO 13:32
PROVIDERS: ATTEND Nurse Practitioner Family
DX: M81.0 Age-related osteoporosis without current pathological fracture (principal)
CPT/HCPCS: 77080

== ENCOUNTER 2019-05-21 11:07 | Outpatient (CLI) | payer MEDICARE, MEDICAID ==
--- NOTE | 2019-05-21 12:11 | ULT ---
ULTRASOUND RETROPERITONEUM COMPLETE: (RENAL) DATE: 05/21/2019 HISTORY: 73-year-old female with "other hydronephrosis N13.39" COMPARISON: No prior renal ultrasounds FINDINGS: Right kidney: 9 x 3.5 x 3 cm. Left kidney: 11.5 x 6.5 x 5 cm. 1.7 x 1.8 x 2 cm rounded fluid-filled structure at right renal hilum. Either parapelvic cyst or dilat ed extrarenal pelvis. Minimal-mild dilation of right calyces. Exophytically protruding anteriorly from the left renal mid-lower pole, there is a 3.5 x 4 x 3.5 cm c ystic lesion. It has at least one septation or daughter cyst. No hydronephrosis on left side. Post void bladder volume 40 mL, recently emptied by self-catheterization. IMPRESSION: 1) no overt high-grade hydronephrosis. 2) minimal or mild right hydronephrosis. 3) 4 cm Bosniak category 2 left renal cystic lesion.
== END 2019-05-21 11:08 | disposition home or self-care (01) ==
LOC: SCSULT 11:07
PROVIDERS: ATTEND Internal Medicine Cardiovascular Disease
DX: N13.39 Other hydronephrosis (principal); N28.9 Disorder of kidney and ureter, unspecified
CPT/HCPCS: 76770

== ENCOUNTER 2020-11-10 10:11 | Outpatient (CLI) | payer MEDICARE, OTHER ==
--- NOTE | 2020-11-10 12:11 | RAD ---
CHEST 2 VIEWS: HISTORY: Dyspnea. COMPARISON: 10/24/2017. FINDINGS: Bilateral stable old granulomatous disease. No cardiomegaly. Minimal bilateral hyperinflation and i ncreased linear and interstitial markings, particularly in the mid and upper lung zones. No confluen t pneumonia, overt edema, or pleural effusion. IMPRESSION: Stable bilateral chronic changes. POS: RRE
== END 2020-11-10 10:12 | disposition home or self-care (01) ==
LOC: BICRAD 10:11
PROVIDERS: ATTEND Internal Medicine Pulmonary Disease
DX: R06.00 Dyspnea, unspecified (principal)
CPT/HCPCS: 71046

== ENCOUNTER 2021-04-14 12:08 | Outpatient (CLI) | payer MEDICARE, MEDICAID | END 2021-04-14 12:09 | disposition home or self-care (01) | LOC: BICMAMMO 12:08 | PROVIDERS: ATTEND Nurse Practitioner Family | DX: Z12.31 Encounter for screening mammogram for malignant neoplasm of breast (principal) | CPT/HCPCS: 77063; 77067 ==

== ENCOUNTER 2021-04-14 12:22 | Outpatient (CLI) | payer MEDICARE, MEDICAID | END 2021-04-14 12:23 | disposition home or self-care (01) | LOC: BICMRI 12:22 | PROVIDERS: ATTEND Nurse Practitioner Family | DX: I71.4 Abdominal aortic aneurysm, without rupture (principal); G44.009 Cluster headache syndrome, unspecified, not intractable; J44.0 Chronic obstructive pulmonary disease with (acute) lower respiratory infection; J20.9 Acute bronchitis, unspecified; M81.0 Age-related osteoporosis without current pathological fracture; F17.210 Nicotine dependence, cigarettes, uncomplicated; E55.9 Vitamin D deficiency, unspecified; E78.2 Mixed hyperlipidemia; F33.1 Major depressive disorder, recurrent, moderate; N13.30 Unspecified hydronephrosis; N32.0 Bladder-neck obstruction; I47.1 Supraventricular tachycardia; G62.9 Polyneuropathy, unspecified; R94.2 Abnormal results of pulmonary function studies; R63.4 Abnormal weight loss; D32.0 Benign neoplasm of cerebral meninges; R90.89 Other abnormal findings on diagnostic imaging of central nervous system; Z78.9 Other specified health status; Z91.81 History of falling | CPT/HCPCS: 70551 ==

== ENCOUNTER 2021-04-26 14:15 | Outpatient (CLI) | payer MEDICARE, MEDICAID | END 2021-04-26 14:16 | disposition home or self-care (01) | LOC: BICULT 14:15 | PROVIDERS: ATTEND Nurse Practitioner Family | DX: G44.009 Cluster headache syndrome, unspecified, not intractable (principal); J44.0 Chronic obstructive pulmonary disease with (acute) lower respiratory infection; R63.4 Abnormal weight loss; F17.210 Nicotine dependence, cigarettes, uncomplicated; R90.89 Other abnormal findings on diagnostic imaging of central nervous system; I47.1 Supraventricular tachycardia; I71.4 Abdominal aortic aneurysm, without rupture; E78.2 Mixed hyperlipidemia; E55.9 Vitamin D deficiency, unspecified | CPT/HCPCS: 93880 ==

== ENCOUNTER 2021-12-20 09:37 | Inpatient (IN) | payer OTHER, MEDICARE, MEDICAID ==
[2021-12-20 10:57] LABS: Hemoglobin 12.6 g/dL (12.0-16.0); Mean Corpuscular HGB CONC 32.5 g/dL (32.0-36.0); Mean Corpuscular Volume 95.5 fL (78.0-98.0); Mean Platelet Volume 7.5 fL (7.4-10.4); Platelet Count 363 thou/uL (130-400); RBC Distribution Width 12.2 % (11.5-14.5); Red Blood Cell (RBC) Count 4.07 mill/uL (4.20-5.40); White Blood Cell (WBC) Count 38.7 thou/uL (4.8-10.8)
[2021-12-20 11:10] LABS: Band 14 % (5-11); Lymphocytes 2 % (21-51); MDiff Complete? YES; Monocytes 1 % (0-10); Neutrophil 83 % (42-75); Ovalocytes SLIGHT = 2-5 cells (100X) (0-1/hpf); Platelet Morphology Comment Appears Adequate; Polychromasia SLIGHT = 2-3 cells (100X) (0-2/hpf)
[2021-12-20 11:14] LABS: ALT (SGPT) 36 U/L (8-55); AST (SGOT) 21 U/L (5-34); Albumin 3.3 g/dL (3.4-4.8); Alkaline Phosphatase 88 U/L (40-110); Anion Gap 15 mmol/L (10-20); BUN (Urea Nitrogen) 22 mg/dL (9.8-20.1); Bilirubin, Total 1.1 mg/dL (0.2-1.2); CK (CPK) 146 U/L (29-168); Calc. Creatinine Clearance 0 mL/min (70-130); Calcium 8.6 mg/dL (7.8-10.44); Carbon Dioxide 25 mmol/L (23-31); Chloride 101 mmol/L (98-107); Glucose 126 mg/dL (83-110); Potassium 3.7 mmol/L (3.5-5.1); Protein, Total 6.3 g/dL (5.8-8.1); Sodium 137 mmol/L (136-145)
[2021-12-20 12:06] LABS: Bacteria/HPF 3+ HPF (None Seen); Bilirubin Negative (Negative); Blood, Urine 2+ (Negative); Clarity Turbid (Clear); Glucose, Urine (Dipstick) Normal (Negative); Ketone, Urine Negative (Negative); Leukocyte 500 Leu/uL (Negative); Nitrite Negative (Negative); Protein, Urine (Dipstick) 100 mg/dL (Neg-Trace); Specific Gravity, Urine 1.018 (1.002-1.036); Squamous Epithelial 0-3 HPF (0-3); Urobilinogen Normal mg/dL (Less than 2); WBC/HPF Greater than 50 HPF (0-3)
[2021-12-20] MEDS ORDERED: Promethazine HCl 25 MG/ML VIAL IM PRN (12:28)
[2021-12-20] MEDS ORDERED: Ondansetron PF 4 MG/2 ML Vial IVP PRN (12:28)
[2021-12-20] MEDS ORDERED: hydrALAZINE 20 MG/ML VIAL SLOW IVP PRN (12:28)
[2021-12-20] MEDS ORDERED: Cyclobenzaprine 10 MG TAB PO PRN (12:33)
[2021-12-20] MEDS ORDERED: cefTRIAXone\\ROCEPHIN 2 GM VIAL ONE (12:47)
[2021-12-20] MEDS ORDERED: Ibuprofen 200 MG TAB PO PRN (12:50)
[2021-12-20] MEDS ORDERED: Ondansetron PF 4 MG/2 ML Vial ONE (13:13)
[2021-12-20] MEDS ORDERED: Morphine 4 MG/ML VIAL ONE (13:13)
[2021-12-20] MEDS ORDERED: traZODone HCl 50 MG TAB PO PRN (13:14)
[2021-12-20] MEDS ORDERED: Arformoterol 15 MCG/2 ML NEB NEB PRN (13:21)
[2021-12-20] MEDS ORDERED: Albuterol Sulfate 1.25 MG/3 ML NEB INH PRN (13:23)
[2021-12-20 13:29] LABS: SARS-CoV-2 NAA Rapid Test DETECTED (NotDetected)
[2021-12-20] MEDS ORDERED: ceFAZolin 2 GM/Dextrose 50 ML 2 GM in Premix Bag 1 BAG IVPB SCH (13:30)
[2021-12-20] MEDS: CEFAZOLIN 1 GM VIAL SLOW IVP SCH ×2 (17:18→21:15)
[2021-12-20] MEDS: Gabapentin 300 MG CAP PO SCH ×2 (17:20→21:14)
[2021-12-20] MEDS: Acetaminophen/Codeine 30-300mg Tablet PO SCH ×2 (17:22→21:15)
[2021-12-20] MEDS: Acetaminophen 325 MG TAB PO SCH ×2 (17:22→21:12)
[2021-12-20] MEDS: Magnesium Oxide 400 MG TAB PO SCH (17:23)
[2021-12-20 17:40] LABS: Lactic Acid 1.9 mmol/L (0.5-2.2)
[2021-12-20 18:06] VITALS: BMI 23.4
[2021-12-20] MEDS: Senokot S 8.6-50 MG TAB PO SCH (21:14)
[2021-12-20] MEDS ORDERED: Sodium Chloride 0.9% 1,000 ML IV SCH (22:45)
[2021-12-21] MEDS: Acetaminophen 325 MG TAB PO SCH ×4 (02:06→20:15)
[2021-12-21] MEDS: Acetaminophen/Codeine 30-300mg Tablet PO SCH ×4 (02:06→20:16)
[2021-12-21] MEDS ORDERED: Piperacillin/Tazobactam 3.375 GM in Sodium Chloride 0.9% 100 ML IVPB SCH (06:00)
[2021-12-21] MEDS: Magnesium Oxide 400 MG TAB PO SCH ×2 (06:00→17:14)
[2021-12-21 06:15] LABS: #Basophils 0.1 thou/uL (0.0-0.2); #Lymphocytes 1.5 thou/uL (1.20-3.40); #Monocytes 0.8 thou/uL (0.11-0.59); #Neutrophils 20.3 thou/uL (1.40-6.50); %Basophils 0.2 % (0.0-1.0); %Eosinophils 0.2 % (0.0-10.0); %Lymphocytes 6.6 % (21.0-51.0); %Monocytes 3.7 % (0.0-10.0); %Neutrophils 89.3 % (42.0-75.0); Hemoglobin 13.2 g/dL (12.0-16.0); Mean Corpuscular HGB CONC 32.2 g/dL (32.0-36.0); Mean Corpuscular Hemoglobin 30.7 pg (27.0-31.0); Mean Corpuscular Volume 95.6 fL (78.0-98.0); Mean Platelet Volume 7.2 fL (7.4-10.4); Platelet Count 294 thou/uL (130-400); RBC Distribution Width 12.3 % (11.5-14.5); Red Blood Cell (RBC) Count 4.28 mill/uL (4.20-5.40); White Blood Cell (WBC) Count 22.8 thou/uL (4.8-10.8)
[2021-12-21 06:32] LABS: Anion Gap 15 mmol/L (10-20); BUN (Urea Nitrogen) 20 mg/dL (9.8-20.1); Calc. Creatinine Clearance 51 mL/min (70-130); Calcium 8.5 mg/dL (7.8-10.44); Carbon Dioxide 23 mmol/L (23-31); Chloride 104 mmol/L (98-107); Glucose 84 mg/dL (83-110); Magnesium 2.1 mg/dL (1.6-2.6); Potassium 3.9 mmol/L (3.5-5.1); Sodium 138 mmol/L (136-145)
[2021-12-21] MEDS: Gabapentin 300 MG CAP PO SCH ×3 (09:00→20:17)
[2021-12-21] MEDS: Escitalopram Oxalate 20 mg Tablet PO SCH (09:01)
[2021-12-21] MEDS: Polyethylene Glycol 3350 17 GM Packet PO SCH (09:06)
[2021-12-21] MEDS: Senokot S 8.6-50 MG TAB PO SCH ×2 (09:06→20:17)
[2021-12-21] MEDS: Piperacillin/Tazobactam 3.375 GM in Sodium Chloride 0.9% 100 ML IVPB SCH ×2 (09:47→17:54)
[2021-12-21] MEDS ORDERED: Sodium Chloride 0.9% 1,000 ML IV SCH (12:15)
[2021-12-21] MEDS ORDERED: Fentanyl 100 MCG/2 ML VIAL ONE ×2 (12:23→14:24)
[2021-12-21] MEDS ORDERED: Lidocaine 2% Jelly 5 ML TUBE ONE (12:23)
[2021-12-21] MEDS ORDERED: Norepinephrine 4 MG/4 ML VIAL ONE (12:53)
[2021-12-21] MEDS ORDERED: Phenylephrine 10 MG/ML VIAL ONE (12:53)
[2021-12-21] MEDS ORDERED: Albumin 5% 0 ML ONE (12:53)
[2021-12-21] MEDS ORDERED: Ketamine 50 MG/ML (10ML VIAL) ONE (12:56)
[2021-12-21] MEDS ORDERED: Albuterol Sulfate HFA (OR ONLY) ONE (12:57)
[2021-12-21] MEDS ORDERED: Lidocaine 1% PF 5 ML VIAL ONE (13:28)
[2021-12-21] MEDS ORDERED: ePHEDrine 50 MG/ML VIAL ONE (13:28)
[2021-12-21] MEDS ORDERED: Rocuronium Bromide 10 MG/ML (10ML VIAL) ONE (13:28)
[2021-12-21] MEDS ORDERED: Ondansetron PF 4 MG/2 ML Vial ONE (13:28)
[2021-12-21] MEDS ORDERED: Glycopyrrolate 0.2 MG/ML 5 ML SYRINGE ONE (13:28)
[2021-12-21] MEDS ORDERED: PHENYLEPHRINE-NS 100 MCG/ML 10 ML SYRINGE ONE (13:28)
[2021-12-21] MEDS ORDERED: PROPOFOL 200 MG/20 ML VIAL ONE (13:28)
[2021-12-21] MEDS ORDERED: ceFAZolin 2 GM/Dextrose 50 ML 2 GM in Premix Bag 1 BAG IVPB SCH (14:00)
[2021-12-21] MEDS ORDERED: Ondansetron HCl/PF 4 MG/2 ML Vial IVP PRN (14:41)
[2021-12-21] MEDS ORDERED: Promethazine HCl 25 MG/ML VIAL IM PRN (14:41)
[2021-12-21] MEDS ORDERED: Promethazine HCl 25 MG/ML VIAL IVPB PRN (14:41)
[2021-12-21] MEDS ORDERED: CEFAZOLIN 2 GM in Sodium Chloride 0.9% 100 ML IVPB SCH (16:00)
[2021-12-21] MEDS ORDERED: Hydrocortisone Sod Succ/PF 100 mg/2 ml Vial IVP SCH (16:30)
[2021-12-21] MEDS: Diltiazem HCl SR 60 mg Capsule PO SCH (20:16)
[2021-12-21] MEDS: Albuterol Sulfate 2.5 mg/3 ml Neb NEB SCH ×2 (20:16→20:17)
[2021-12-21] MEDS ORDERED: Albuterol 200 PUFF (6.7GM INHALER) INH PRN (20:29)
[2021-12-21] MEDS: CEFAZOLIN 2 GM in Sodium Chloride 0.9% 100 ML IVPB SCH (22:23)
[2021-12-21] MEDS: Hydrocortisone Sod Succ/PF 100 mg/2 ml Vial IVP SCH (22:24)
[2021-12-21] MEDS: Albuterol 200 PUFF (6.7GM INHALER) INH SCH (22:30)
[2021-12-22] MEDS: Piperacillin/Tazobactam 3.375 GM in Sodium Chloride 0.9% 100 ML IVPB SCH (02:00)
[2021-12-22] MEDS: Acetaminophen 325 MG TAB PO SCH ×4 (02:00→19:57)
[2021-12-22] MEDS: Acetaminophen/Codeine 30-300mg Tablet PO SCH ×4 (02:00→19:57)
[2021-12-22 06:53] LABS: #Lymphocytes 0.8 thou/uL (1.20-3.40); #Monocytes 0.3 thou/uL (0.11-0.59); #Neutrophils 13.6 thou/uL (1.40-6.50); %Basophils 0.1 % (0.0-1.0); %Eosinophils 0.1 % (0.0-10.0); %Lymphocytes 5.2 % (21.0-51.0); %Monocytes 1.9 % (0.0-10.0); %Neutrophils 92.8 % (42.0-75.0); Mean Corpuscular HGB CONC 31.8 g/dL (32.0-36.0); Mean Corpuscular Hemoglobin 30.7 pg (27.0-31.0); Mean Corpuscular Volume 96.8 fL (78.0-98.0); Mean Platelet Volume 7.2 fL (7.4-10.4); Platelet Count 410 thou/uL (130-400); RBC Distribution Width 12.3 % (11.5-14.5); Red Blood Cell (RBC) Count 3.92 mill/uL (4.20-5.40); White Blood Cell (WBC) Count 14.6 thou/uL (4.8-10.8)
[2021-12-22 07:27] LABS: Anion Gap 13 mmol/L (10-20); BUN (Urea Nitrogen) 23 mg/dL (9.8-20.1); Calc. Creatinine Clearance 48 mL/min (70-130); Calcium 8.1 mg/dL (7.8-10.44); Carbon Dioxide 22 mmol/L (23-31); Chloride 107 mmol/L (98-107); Glucose 137 mg/dL (83-110); Magnesium 2.5 mg/dL (1.6-2.6); Phosphorus 3.6 mg/dL (2.3-4.7); Sodium 138 mmol/L (136-145)
[2021-12-22] MEDS: Albuterol 200 PUFF (6.7GM INHALER) INH SCH ×6 (07:28→23:00)
[2021-12-22] MEDS: Hydrocortisone Sod Succ/PF 100 mg/2 ml Vial IVP SCH (07:31)
[2021-12-22] MEDS: CEFAZOLIN 2 GM in Sodium Chloride 0.9% 100 ML IVPB SCH (07:31)
[2021-12-22] MEDS: Magnesium Oxide 400 MG TAB PO SCH ×2 (07:34→17:38)
[2021-12-22] MEDS ORDERED: Sodium Phosphate 15 MMOL in Sodium Chloride 0.9% 250 ML 250 ML IVPB SCH (07:45)
[2021-12-22] MEDS: Gabapentin 300 MG CAP PO SCH ×3 (09:00→19:57)
[2021-12-22] MEDS: Polyethylene Glycol 3350 17 GM Packet PO SCH (09:00)
[2021-12-22] MEDS: Atorvastatin Calcium 40 MG TAB PO SCH (09:00)
[2021-12-22] MEDS: Montelukast Sodium 10 mg Tablet PO SCH (09:00)
[2021-12-22] MEDS: Senokot S 8.6-50 MG TAB PO SCH ×2 (09:00→19:56)
[2021-12-22] MEDS: Escitalopram Oxalate 20 mg Tablet PO SCH (09:01)
[2021-12-22] MEDS: Diltiazem HCl SR 60 mg Capsule PO SCH ×2 (09:02→19:58)
[2021-12-22] MEDS: cefTRIAXone\\ROCEPHIN 2 GM VIAL IVPB SCH (09:36)
[2021-12-22 10:27] LABS: ALT (SGPT) 11 U/L (8-55); AST (SGOT) 21 U/L (5-34); Albumin 2.7 g/dL (3.4-4.8); Alkaline Phosphatase 115 U/L (40-110); Bilirubin, Direct 0.2 mg/dL (0.1-0.3); Bilirubin, Total 0.3 mg/dL (0.2-1.2); Protein, Total 6.1 g/dL (5.8-8.1)
[2021-12-22] MEDS ORDERED: PARoxetine 20 MG TAB ONE (10:40)
[2021-12-22] MEDS: methylPREDNISolone Sod Succ 40 MG VIAL IVP SCH ×2 (14:09→17:38)
[2021-12-22] MEDS: Aspirin 81 mg Enteric Coated Tablet PO SCH (19:56)
[2021-12-23] MEDS: methylPREDNISolone Sod Succ 40 MG VIAL IVP SCH ×4 (00:12→17:32)
[2021-12-23] MEDS: Acetaminophen/Codeine 30-300mg Tablet PO SCH ×4 (02:05→19:31)
[2021-12-23] MEDS: Acetaminophen 325 MG TAB PO SCH ×4 (02:06→19:30)
[2021-12-23] MEDS: Albuterol 200 PUFF (6.7GM INHALER) INH SCH ×6 (02:30→22:30)
[2021-12-23] MEDS: Magnesium Oxide 400 MG TAB PO SCH ×2 (05:32→17:32)
[2021-12-23 05:52] LABS: #Lymphocytes 0.8 thou/uL (1.20-3.40); #Monocytes 0.3 thou/uL (0.11-0.59); #Neutrophils 12.5 thou/uL (1.40-6.50); %Eosinophils 0.1 % (0.0-10.0); %Lymphocytes 5.8 % (21.0-51.0); %Monocytes 1.9 % (0.0-10.0); %Neutrophils 92.2 % (42.0-75.0); Hemoglobin 11.1 g/dL (12.0-16.0); Mean Corpuscular HGB CONC 32.5 g/dL (32.0-36.0); Mean Corpuscular Hemoglobin 31.3 pg (27.0-31.0); Mean Corpuscular Volume 96.4 fL (78.0-98.0); Mean Platelet Volume 7.2 fL (7.4-10.4); Platelet Count 402 thou/uL (130-400); RBC Distribution Width 12.2 % (11.5-14.5); Red Blood Cell (RBC) Count 3.54 mill/uL (4.20-5.40); White Blood Cell (WBC) Count 13.5 thou/uL (4.8-10.8)
[2021-12-23 06:19] LABS: Anion Gap 11 mmol/L (10-20); BUN (Urea Nitrogen) 26 mg/dL (9.8-20.1); Calc. Creatinine Clearance 60 mL/min (70-130); Calcium 8.3 mg/dL (7.8-10.44); Carbon Dioxide 24 mmol/L (23-31); Chloride 107 mmol/L (98-107); Glucose 130 mg/dL (83-110); Magnesium 2.5 mg/dL (1.6-2.6); Phosphorus 2.4 mg/dL (2.3-4.7); Potassium 4.2 mmol/L (3.5-5.1); Sodium 138 mmol/L (136-145)
[2021-12-23] MEDS ORDERED: PHOS-NAK 1 PKT PACK PO SCH (08:00)
[2021-12-23] MEDS: Senokot S 8.6-50 MG TAB PO SCH ×2 (08:55→19:30)
[2021-12-23] MEDS: Aspirin 81 mg Enteric Coated Tablet PO SCH ×2 (08:55→19:30)
[2021-12-23] MEDS: Montelukast Sodium 10 mg Tablet PO SCH (08:56)
[2021-12-23] MEDS: Atorvastatin Calcium 40 MG TAB PO SCH (08:56)
[2021-12-23] MEDS: Gabapentin 300 MG CAP PO SCH ×3 (08:56→19:30)
[2021-12-23] MEDS: Escitalopram Oxalate 20 mg Tablet PO SCH (08:56)
[2021-12-23] MEDS: cefTRIAXone\\ROCEPHIN 2 GM VIAL IVPB SCH (08:56)
[2021-12-23] MEDS: Diltiazem HCl SR 60 mg Capsule PO SCH ×2 (08:57→20:25)
[2021-12-23] MEDS: Polyethylene Glycol 3350 17 GM Packet PO SCH (08:57)
[2021-12-24] MEDS: methylPREDNISolone Sod Succ 40 MG VIAL IVP SCH ×2 (00:20→05:06)
[2021-12-24] MEDS: Acetaminophen 325 MG TAB PO SCH ×4 (01:46→21:09)
[2021-12-24] MEDS: Acetaminophen/Codeine 30-300mg Tablet PO SCH ×4 (01:47→21:08)
[2021-12-24] MEDS: Albuterol 200 PUFF (6.7GM INHALER) INH SCH ×6 (01:58→23:48)
[2021-12-24] MEDS: Magnesium Oxide 400 MG TAB PO SCH ×2 (05:06→17:36)
[2021-12-24 06:00] LABS: Anion Gap 10 mmol/L (10-20); BUN (Urea Nitrogen) 29 mg/dL (9.8-20.1); Calc. Creatinine Clearance 67 mL/min (70-130); Calcium 8.3 mg/dL (7.8-10.44); Carbon Dioxide 26 mmol/L (23-31); Chloride 107 mmol/L (98-107); Glucose 130 mg/dL (83-110); Magnesium 2.4 mg/dL (1.6-2.6); Phosphorus 2.2 mg/dL (2.3-4.7); Potassium 4.5 mmol/L (3.5-5.1); Sodium 138 mmol/L (136-145)
[2021-12-24 06:06] LABS: #Basophils 0.1 thou/uL (0.0-0.2); #Lymphocytes 0.8 thou/uL (1.20-3.40); #Monocytes 0.4 thou/uL (0.11-0.59); #Neutrophils 10.5 thou/uL (1.40-6.50); %Basophils 0.6 % (0.0-1.0); %Lymphocytes 6.4 % (21.0-51.0); %Monocytes 3.1 % (0.0-10.0); %Neutrophils 89.8 % (42.0-75.0); Hemoglobin 10.8 g/dL (12.0-16.0); Mean Corpuscular Hemoglobin 30.7 pg (27.0-31.0); Mean Platelet Volume 7.3 fL (7.4-10.4); Platelet Count 397 thou/uL (130-400); RBC Distribution Width 12.3 % (11.5-14.5); Red Blood Cell (RBC) Count 3.51 mill/uL (4.20-5.40); White Blood Cell (WBC) Count 11.8 thou/uL (4.8-10.8)
[2021-12-24] MEDS ORDERED: PHOS-NAK 1 PKT PACK PO SCH (09:00)
[2021-12-24] MEDS: cefTRIAXone\\ROCEPHIN 2 GM VIAL IVPB SCH (09:33)
[2021-12-24] MEDS: Polyethylene Glycol 3350 17 GM Packet PO SCH (09:33)
[2021-12-24] MEDS: Floranex 1 GM Packet PO SCH (09:33)
[2021-12-24] MEDS: Aspirin 81 mg Enteric Coated Tablet PO SCH ×2 (09:34→21:10)
[2021-12-24] MEDS: Senokot S 8.6-50 MG TAB PO SCH ×2 (09:34→21:10)
[2021-12-24] MEDS: Gabapentin 300 MG CAP PO SCH ×3 (09:34→21:09)
[2021-12-24] MEDS: Montelukast Sodium 10 mg Tablet PO SCH (09:34)
[2021-12-24] MEDS: Escitalopram Oxalate 20 mg Tablet PO SCH (09:34)
[2021-12-24] MEDS: Atorvastatin Calcium 40 MG TAB PO SCH (09:34)
[2021-12-24] MEDS: Diltiazem HCl SR 60 mg Capsule PO SCH ×2 (09:35→21:27)
[2021-12-24] MEDS: Ciprofloxacin 500 MG TAB PO SCH (21:09)
[2021-12-25] MEDS: Acetaminophen/Codeine 30-300mg Tablet PO SCH ×4 (03:24→21:28)
[2021-12-25] MEDS: Acetaminophen 325 MG TAB PO SCH ×4 (03:25→21:27)
[2021-12-25] MEDS: Albuterol 200 PUFF (6.7GM INHALER) INH SCH ×6 (03:29→21:37)
[2021-12-25] MEDS: Ciprofloxacin 500 MG TAB PO SCH ×2 (06:40→21:27)
[2021-12-25] MEDS: Magnesium Oxide 400 MG TAB PO SCH ×2 (06:40→18:11)
[2021-12-25] MEDS: predniSONE 20 MG TAB PO SCH (09:14)
[2021-12-25] MEDS: Floranex 1 GM Packet PO SCH (09:14)
[2021-12-25] MEDS: Aspirin 81 mg Enteric Coated Tablet PO SCH ×2 (09:15→21:26)
[2021-12-25] MEDS: Atorvastatin Calcium 40 MG TAB PO SCH (09:17)
[2021-12-25] MEDS: Escitalopram Oxalate 20 mg Tablet PO SCH (09:18)
[2021-12-25] MEDS: Diltiazem HCl SR 60 mg Capsule PO SCH ×2 (09:18→21:26)
[2021-12-25] MEDS: Gabapentin 300 MG CAP PO SCH ×3 (09:19→21:27)
[2021-12-25] MEDS: Montelukast Sodium 10 mg Tablet PO SCH (09:21)
[2021-12-25] MEDS: Senokot S 8.6-50 MG TAB PO SCH ×2 (09:22→21:44)
[2021-12-25] MEDS: Polyethylene Glycol 3350 17 GM Packet PO SCH (09:23)
[2021-12-26] MEDS: Acetaminophen 325 MG TAB PO SCH ×3 (01:39→14:07)
[2021-12-26] MEDS: Acetaminophen/Codeine 30-300mg Tablet PO SCH ×3 (01:40→14:07)
[2021-12-26] MEDS: Albuterol 200 PUFF (6.7GM INHALER) INH SCH ×2 (01:43→05:54)
[2021-12-26] MEDS: Magnesium Oxide 400 MG TAB PO SCH (05:49)
[2021-12-26] MEDS: Ciprofloxacin 500 MG TAB PO SCH (05:49)
[2021-12-26] MEDS: predniSONE 20 MG TAB PO SCH (07:58)
[2021-12-26] MEDS: Aspirin 81 mg Enteric Coated Tablet PO SCH (08:00)
[2021-12-26] MEDS: Diltiazem HCl SR 60 mg Capsule PO SCH (08:02)
[2021-12-26] MEDS: Escitalopram Oxalate 20 mg Tablet PO SCH (08:03)
[2021-12-26] MEDS: Montelukast Sodium 10 mg Tablet PO SCH (08:03)
[2021-12-26] MEDS: Atorvastatin Calcium 40 MG TAB PO SCH (08:03)
[2021-12-26] MEDS: Gabapentin 300 MG CAP PO SCH ×2 (08:03→14:07)
[2021-12-26] MEDS: Floranex 1 GM Packet PO SCH (08:04)
[2021-12-26] MEDS: Senokot S 8.6-50 MG TAB PO SCH (10:43)
[2021-12-26] MEDS: Polyethylene Glycol 3350 17 GM Packet PO SCH (10:43)
[2021-12-26 12:26] VITALS: BP 100/63; TEMP 97.9
== END 2021-12-26 16:02 | DRG 480 ==
LOC: ERS 09:37 → SURG B 12:28
PROVIDERS: ADMIT Surgery; ATTEND Emergency Medicine
PROC: 8E0ZXY6 Isolation (ICD-10-PCS; 2021-12-20)
PROC: 0QS706Z Reposition Left Upper Femur with Intramedullary Internal Fixation Device, Open Approach (ICD-10-PCS; principal; 2021-12-21)
DX: S72.142A Displaced intertrochanteric fracture of left femur, initial encounter for closed fracture (principal); U07.1 COVID-19; N39.0 Urinary tract infection, site not specified; R78.81 Bacteremia; J44.1 Chronic obstructive pulmonary disease with (acute) exacerbation; E27.40 Unspecified adrenocortical insufficiency; B96.20 Unspecified Escherichia coli [E. coli] as the cause of diseases classified elsewhere; R33.9 Retention of urine, unspecified; N18.9 Chronic kidney disease, unspecified; E78.5 Hyperlipidemia, unspecified; I12.9 Hypertensive chronic kidney disease with stage 1 through stage 4 chronic kidney disease, or unspecified chronic kidney disease; E83.39 Other disorders of phosphorus metabolism; W01.0XXA Fall on same level from slipping, tripping and stumbling without subsequent striking against object, initial encounter; F41.9 Anxiety disorder, unspecified; E78.00 Pure hypercholesterolemia, unspecified; F32.A Depression, unspecified; I25.10 Atherosclerotic heart disease of native coronary artery without angina pectoris; M19.90 Unspecified osteoarthritis, unspecified site; F17.210 Nicotine dependence, cigarettes, uncomplicated; Z60.2 Problems related to living alone; Y92.002 Bathroom of unspecified non-institutional (private) residence as the place of occurrence of the external cause; Z79.82 Long term (current) use of aspirin; Z79.899 Other long term (current) drug therapy
CPT/HCPCS: 36415; 71045; 76000; 76705; 80048; 80053; 80076; 81003; 81015; 82533; 82550; 83605; 83735; 83880; 84100; 84484; 85025; 86850; 86900; 86901; 87040; 87077; 87086; 87149; 87186; 93005; 93010; C1713; G0390; J0690; J0696; J1720; J2270; J2370; J2405; J2543; J2704; J2920; J3010; J3490; J7050; J7512; P9045; U0002

== ENCOUNTER 2022-01-18 19:31 | Inpatient (IN) | payer MEDICARE, MEDICAID ==
[2022-01-19 00:13] VITALS: BMI 20.2
[2022-01-19] MEDS ORDERED: Acetaminophen 650 MG Suppository PR PRN ×2 (00:34)
[2022-01-19] MEDS ORDERED: Benzonatate 100 MG CAP PO PRN ×2 (00:34)
[2022-01-19] MEDS ORDERED: Ondansetron PF 4 MG/2 ML Vial IVP PRN (00:34)
[2022-01-19] MEDS ORDERED: Loratadine 10 MG TAB PO PRN (00:34)
[2022-01-19] MEDS ORDERED: Acetaminophen 325 MG TAB PO PRN (00:34)
[2022-01-19] MEDS ORDERED: Ondansetron ODT 4 MG TAB PO PRN (00:34)
[2022-01-19] MEDS ORDERED: Artificial Tear Sol 15 ML BOT EA EYE PRN (00:34)
[2022-01-19] MEDS ORDERED: Enoxaparin Sodium 40 MG/0.4 ML SYRINGE SC SCH (00:45)
[2022-01-19] MEDS ORDERED: Albuterol Sulfate 2.5 mg/3 ml Neb NEB PRN (01:03)
[2022-01-19 06:00] LABS: #Basophils 0.1 thou/uL (0.0-0.2); #Lymphocytes 1.8 thou/uL (1.20-3.40); #Monocytes 1.5 thou/uL (0.11-0.59); %Basophils 0.4 % (0.0-1.0); %Eosinophils 0.2 % (0.0-10.0); %Lymphocytes 11.8 % (21.0-51.0); %Monocytes 9.8 % (0.0-10.0); %Neutrophils 77.8 % (42.0-75.0); Mean Corpuscular Hemoglobin 31.3 pg (27.0-31.0); Mean Corpuscular Volume 97.9 fL (78.0-98.0); Mean Platelet Volume 7.1 fL (7.4-10.4); Platelet Count 352 thou/uL (130-400); Red Blood Cell (RBC) Count 3.18 mill/uL (4.20-5.40); White Blood Cell (WBC) Count 15.5 thou/uL (4.8-10.8)
[2022-01-19 06:22] LABS: Anion Gap 11 mmol/L (10-20); BUN (Urea Nitrogen) 10 mg/dL (9.8-20.1); Calc. Creatinine Clearance 85 mL/min (70-130); Carbon Dioxide 24 mmol/L (23-31); Chloride 102 mmol/L (98-107); Glucose 114 mg/dL (83-110); Potassium 3.6 mmol/L (3.5-5.1); Sodium 133 mmol/L (136-145)
[2022-01-19] MEDS: Ascorbic Acid 500 mg Chewable Tablet PO SCH (07:54)
[2022-01-19] MEDS: Cholecalciferol (Vitamin D3) 400 UNITS TAB PO SCH (07:54)
[2022-01-19] MEDS: Zinc Sulfate 220 MG CAP PO SCH (07:54)
[2022-01-19] MEDS: Cefepime 2 GM in Sodium Chloride 0.9% 100 ML IVPB SCH ×2 (08:28→20:41)
[2022-01-19] MEDS: Vancomycin HCl 750 MG in Sodium Chloride 0.9% 250 ML 250 ML IVPB SCH ×2 (09:34→22:23)
[2022-01-19] MEDS: Acetaminophen 325 MG TAB PO PRN (10:10)
[2022-01-19] MEDS: Ibuprofen 200 MG TAB PO PRN (10:10)
[2022-01-19] MEDS: Sodium Chloride 0.9% 1,000 ML IV SCH (15:30)
[2022-01-19] MEDS: traMADol HCl 50 MG TAB PO PRN ×2 (15:39→20:41)
[2022-01-19] MEDS: Enoxaparin Sodium 40 MG/0.4 ML SYRINGE SC SCH (20:41)
[2022-01-20] MEDS: Sodium Chloride 0.9% 1,000 ML IV SCH ×2 (05:14→18:09)
[2022-01-20 08:08] LABS: #Basophils 0.1 thou/uL (0.0-0.2); #Lymphocytes 1.2 thou/uL (1.20-3.40); #Neutrophils 9.9 thou/uL (1.40-6.50); %Basophils 0.5 % (0.0-1.0); %Eosinophils 0.2 % (0.0-10.0); %Monocytes 7.9 % (0.0-10.0); %Neutrophils 81.5 % (42.0-75.0); Mean Corpuscular HGB CONC 33.5 g/dL (32.0-36.0); Mean Corpuscular Hemoglobin 32.1 pg (27.0-31.0); Mean Corpuscular Volume 95.8 fL (78.0-98.0); Mean Platelet Volume 6.6 fL (7.4-10.4); Platelet Count 380 thou/uL (130-400); RBC Distribution Width 12.9 % (11.5-14.5); Red Blood Cell (RBC) Count 3.11 mill/uL (4.20-5.40); White Blood Cell (WBC) Count 12.2 thou/uL (4.8-10.8)
[2022-01-20 08:27] LABS: Vancomycin, Trough 9.4 ug/mL
[2022-01-20 08:28] LABS: Anion Gap 12 mmol/L (10-20); BUN (Urea Nitrogen) 6 mg/dL (9.8-20.1); Calc. Creatinine Clearance 85 mL/min (70-130); Calcium 7.9 mg/dL (7.8-10.44); Carbon Dioxide 22 mmol/L (23-31); Chloride 101 mmol/L (98-107); Glucose 103 mg/dL (83-110); Sodium 132 mmol/L (136-145)
[2022-01-20 08:33] LABS: Potassium 2.9 mmol/L (3.5-5.1)
[2022-01-20] MEDS: Ascorbic Acid 500 mg Chewable Tablet PO SCH (08:48)
[2022-01-20] MEDS: Zinc Sulfate 220 MG CAP PO SCH (08:48)
[2022-01-20] MEDS: Cholecalciferol (Vitamin D3) 400 UNITS TAB PO SCH (08:48)
[2022-01-20] MEDS: Acetaminophen 325 MG TAB PO PRN ×2 (08:48→16:52)
[2022-01-20] MEDS: traMADol HCl 50 MG TAB PO PRN ×2 (08:48→16:53)
[2022-01-20] MEDS: Cefepime 2 GM in Sodium Chloride 0.9% 100 ML IVPB SCH ×2 (08:57→20:10)
[2022-01-20] MEDS: Potassium Chloride 20 MEQ TAB PO SCH ×2 (08:58→11:56)
[2022-01-20] MEDS: Vancomycin 1 GM in Premix Bag 1 BAG IVPB SCH ×2 (09:52→21:19)
[2022-01-20] MEDS: Ibuprofen 200 MG TAB PO PRN (11:57)
[2022-01-20] MEDS: Enoxaparin Sodium 40 MG/0.4 ML SYRINGE SC SCH (20:12)
[2022-01-21] MEDS: traMADol HCl 50 MG TAB PO PRN ×2 (05:49→23:53)
[2022-01-21 05:53] LABS: #Eosinphils 0.2 thou/uL (0.0-0.7); #Lymphocytes 1.8 thou/uL (1.20-3.40); #Monocytes 0.9 thou/uL (0.11-0.59); #Neutrophils 11.1 thou/uL (1.40-6.50); %Basophils 0.3 % (0.0-1.0); %Eosinophils 1.3 % (0.0-10.0); %Lymphocytes 12.8 % (21.0-51.0); %Monocytes 6.5 % (0.0-10.0); %Neutrophils 79.1 % (42.0-75.0); Hemoglobin 10.1 g/dL (12.0-16.0); Mean Corpuscular Hemoglobin 29.8 pg (27.0-31.0); Mean Corpuscular Volume 96.1 fL (78.0-98.0); Mean Platelet Volume 6.7 fL (7.4-10.4); Platelet Count 436 thou/uL (130-400); Red Blood Cell (RBC) Count 3.39 mill/uL (4.20-5.40)
[2022-01-21 06:09] LABS: Anion Gap 10 mmol/L (10-20); BUN (Urea Nitrogen) 7 mg/dL (9.8-20.1); Calc. Creatinine Clearance 91 mL/min (70-130); Calcium 7.9 mg/dL (7.8-10.44); Carbon Dioxide 22 mmol/L (23-31); Chloride 104 mmol/L (98-107); Glucose 88 mg/dL (83-110); Potassium 3.7 mmol/L (3.5-5.1); Sodium 132 mmol/L (136-145)
[2022-01-21] MEDS: Sodium Chloride 0.9% 1,000 ML IV SCH ×3 (06:52→23:54)
[2022-01-21] MEDS: Cefepime 2 GM in Sodium Chloride 0.9% 100 ML IVPB SCH (08:47)
[2022-01-21] MEDS: Zinc Sulfate 220 MG CAP PO SCH (08:49)
[2022-01-21] MEDS: Cholecalciferol (Vitamin D3) 400 UNITS TAB PO SCH (08:49)
[2022-01-21] MEDS: Ascorbic Acid 500 mg Chewable Tablet PO SCH (08:49)
[2022-01-21] MEDS: Vancomycin 1 GM in Premix Bag 1 BAG IVPB SCH ×2 (08:50→21:09)
[2022-01-21 20:20] LABS: Vancomycin, Trough 7.8 ug/mL
[2022-01-21] MEDS: Enoxaparin Sodium 40 MG/0.4 ML SYRINGE SC SCH (21:09)
[2022-01-22 06:06] LABS: #Eosinphils 0.2 thou/uL (0.0-0.7); #Lymphocytes 2.2 thou/uL (1.20-3.40); #Monocytes 1.1 thou/uL (0.11-0.59); #Neutrophils 9.8 thou/uL (1.40-6.50); %Basophils 0.3 % (0.0-1.0); %Eosinophils 1.1 % (0.0-10.0); %Lymphocytes 16.5 % (21.0-51.0); %Neutrophils 74.1 % (42.0-75.0); Hemoglobin 9.3 g/dL (12.0-16.0); Mean Corpuscular Hemoglobin 30.6 pg (27.0-31.0); Mean Corpuscular Volume 95.6 fL (78.0-98.0); Mean Platelet Volume 6.4 fL (7.4-10.4); Platelet Count 438 thou/uL (130-400); Red Blood Cell (RBC) Count 3.02 mill/uL (4.20-5.40); White Blood Cell (WBC) Count 13.2 thou/uL (4.8-10.8)
[2022-01-22] MEDS: Vancomycin 1 GM in Premix Bag 1 BAG IVPB SCH ×3 (06:07→22:40)
[2022-01-22 06:26] LABS: Anion Gap 10 mmol/L (10-20); BUN (Urea Nitrogen) 5 mg/dL (9.8-20.1); Calc. Creatinine Clearance 89 mL/min (70-130); Calcium 7.8 mg/dL (7.8-10.44); Carbon Dioxide 25 mmol/L (23-31); Chloride 101 mmol/L (98-107); Glucose 101 mg/dL (83-110); Sodium 133 mmol/L (136-145)
[2022-01-22 06:38] LABS: Potassium 2.7 mmol/L (3.5-5.1)
[2022-01-22] MEDS ORDERED: Electrolyte Replacement Protocol FS PRN (07:00)
[2022-01-22] MEDS ORDERED: Electrolyte Replacement Protocol 1 EACH FS SCH (07:00)
[2022-01-22 08:06] LABS: Magnesium 1.6 mg/dL (1.6-2.6)
[2022-01-22] MEDS: Ascorbic Acid 500 mg Chewable Tablet PO SCH (09:17)
[2022-01-22] MEDS: traMADol HCl 50 MG TAB PO PRN (09:18)
[2022-01-22] MEDS: Cholecalciferol (Vitamin D3) 400 UNITS TAB PO SCH (09:18)
[2022-01-22] MEDS: Zinc Sulfate 220 MG CAP PO SCH (09:18)
[2022-01-22] MEDS ORDERED: Magnesium 2 GM/50 ML(in water) 2 GM in Premix Bag 1 BAG IVPB SCH (11:30)
[2022-01-22] MEDS ORDERED: Potassium Chloride 20 MEQ TAB PO SCH (11:30)
[2022-01-22] MEDS: Potassium Chloride 20 MEQ TAB PO SCH ×2 (11:54→14:35)
[2022-01-22] MEDS: Sodium Chloride 0.9% 1,000 ML IV SCH (17:03)
[2022-01-22] MEDS: Enoxaparin Sodium 40 MG/0.4 ML SYRINGE SC SCH (21:07)
[2022-01-22] MEDS: Aspirin 81 mg Enteric Coated Tablet PO SCH (21:07)
[2022-01-22 21:43] LABS: Vancomycin, Trough 21.2 ug/mL
[2022-01-22] MEDS: Mometasone 100 MCG/Formoterol 5 MCG 120 PUFF INHALER INH SCH (23:43)
[2022-01-23] MEDS: Vancomycin 1 GM in Premix Bag 1 BAG IVPB SCH ×3 (05:52→22:29)
[2022-01-23] MEDS: Sodium Chloride 0.9% 1,000 ML IV SCH (05:57)
[2022-01-23] MEDS: Mometasone 100 MCG/Formoterol 5 MCG 120 PUFF INHALER INH SCH ×2 (07:17→19:05)
[2022-01-23 07:33] LABS: #Eosinphils 0.1 thou/uL (0.0-0.7); #Lymphocytes 1.8 thou/uL (1.20-3.40); #Monocytes 1.1 thou/uL (0.11-0.59); #Neutrophils 11.8 thou/uL (1.40-6.50); %Basophils 0.2 % (0.0-1.0); %Eosinophils 0.7 % (0.0-10.0); %Lymphocytes 12.4 % (21.0-51.0); %Monocytes 7.4 % (0.0-10.0); %Neutrophils 79.4 % (42.0-75.0); Hemoglobin 9.8 g/dL (12.0-16.0); Mean Corpuscular HGB CONC 33.6 g/dL (32.0-36.0); Mean Corpuscular Hemoglobin 32.1 pg (27.0-31.0); Mean Corpuscular Volume 95.5 fL (78.0-98.0); Mean Platelet Volume 6.3 fL (7.4-10.4); Platelet Count 507 thou/uL (130-400); Red Blood Cell (RBC) Count 3.04 mill/uL (4.20-5.40); White Blood Cell (WBC) Count 14.9 thou/uL (4.8-10.8)
[2022-01-23 07:54] LABS: Anion Gap 10 mmol/L (10-20); BUN (Urea Nitrogen) 6 mg/dL (9.8-20.1); Calc. Creatinine Clearance 91 mL/min (70-130); Calcium 7.8 mg/dL (7.8-10.44); Carbon Dioxide 24 mmol/L (23-31); Chloride 103 mmol/L (98-107); Glucose 101 mg/dL (83-110); Magnesium 1.8 mg/dL (1.6-2.6); Potassium 3.3 mmol/L (3.5-5.1); Sodium 134 mmol/L (136-145)
[2022-01-23] MEDS: Ascorbic Acid 500 mg Chewable Tablet PO SCH (07:55)
[2022-01-23] MEDS: Cholecalciferol (Vitamin D3) 400 UNITS TAB PO SCH (07:55)
[2022-01-23] MEDS: Saccharomyces boulardii 250 MG CAP PO SCH (07:56)
[2022-01-23] MEDS: Montelukast Sodium 10 mg Tablet PO SCH (07:56)
[2022-01-23] MEDS: Aspirin 81 mg Enteric Coated Tablet PO SCH ×2 (07:56→22:29)
[2022-01-23] MEDS: Zinc Sulfate 220 MG CAP PO SCH (07:56)
[2022-01-23] MEDS: Atorvastatin Calcium 40 MG TAB PO SCH (07:56)
[2022-01-23] MEDS ORDERED: Magnesium 2 GM/50 ML(in water) 2 GM in Premix Bag 1 BAG IVPB SCH (08:15)
[2022-01-23] MEDS ORDERED: Potassium Chloride 20 MEQ TAB PO SCH (08:15)
[2022-01-23] MEDS ORDERED: Magnesium 2 GM/50 ML BAG (IN WATER) ONE (10:12)
[2022-01-23 13:51] LABS: Potassium 3.6 mmol/L (3.5-5.1)
[2022-01-23] MEDS: Acetaminophen 325 MG TAB PO PRN (16:07)
[2022-01-23 21:40] LABS: Vancomycin, Trough 23.1 ug/mL
[2022-01-23] MEDS: Enoxaparin Sodium 40 MG/0.4 ML SYRINGE SC SCH (22:29)
[2022-01-24] MEDS: Vancomycin 1 GM in Premix Bag 1 BAG IVPB SCH ×3 (05:43→22:00)
[2022-01-24 05:44] LABS: #Eosinphils 0.2 thou/uL (0.0-0.7); #Lymphocytes 2.3 thou/uL (1.20-3.40); #Neutrophils 10.3 thou/uL (1.40-6.50); %Basophils 0.1 % (0.0-1.0); %Eosinophils 1.5 % (0.0-10.0); %Lymphocytes 16.8 % (21.0-51.0); %Neutrophils 74.5 % (42.0-75.0); Hemoglobin 9.2 g/dL (12.0-16.0); Mean Corpuscular HGB CONC 32.8 g/dL (32.0-36.0); Mean Corpuscular Hemoglobin 30.6 pg (27.0-31.0); Mean Corpuscular Volume 93.3 fL (78.0-98.0); Mean Platelet Volume 6.1 fL (7.4-10.4); Platelet Count 556 thou/uL (130-400); RBC Distribution Width 13.2 % (11.5-14.5); Red Blood Cell (RBC) Count 3.02 mill/uL (4.20-5.40); White Blood Cell (WBC) Count 13.8 thou/uL (4.8-10.8)
[2022-01-24 06:13] LABS: Anion Gap 7 mmol/L (10-20); BUN (Urea Nitrogen) 6 mg/dL (9.8-20.1); Calc. Creatinine Clearance 93 mL/min (70-130); Calcium 7.7 mg/dL (7.8-10.44); Carbon Dioxide 27 mmol/L (23-31); Chloride 102 mmol/L (98-107); Glucose 100 mg/dL (83-110); Magnesium 1.9 mg/dL (1.6-2.6); Potassium 3.1 mmol/L (3.5-5.1); Sodium 133 mmol/L (136-145)
[2022-01-24] MEDS ORDERED: Potassium Chloride 20 MEQ TAB PO SCH (07:00)
[2022-01-24] MEDS ORDERED: Magnesium 2 GM/50 ML(in water) 2 GM in Premix Bag 1 BAG IVPB SCH (07:00)
[2022-01-24] MEDS: Mometasone 100 MCG/Formoterol 5 MCG 120 PUFF INHALER INH SCH ×2 (07:36→19:38)
[2022-01-24] MEDS: Aspirin 81 mg Enteric Coated Tablet PO SCH ×2 (09:04→21:28)
[2022-01-24] MEDS: Montelukast Sodium 10 mg Tablet PO SCH (09:04)
[2022-01-24] MEDS: Atorvastatin Calcium 40 MG TAB PO SCH (09:04)
[2022-01-24] MEDS: Zinc Sulfate 220 MG CAP PO SCH (09:04)
[2022-01-24] MEDS: Cholecalciferol (Vitamin D3) 400 UNITS TAB PO SCH (09:04)
[2022-01-24] MEDS: Ascorbic Acid 500 mg Chewable Tablet PO SCH (09:04)
[2022-01-24] MEDS: Saccharomyces boulardii 250 MG CAP PO SCH (09:04)
[2022-01-24 20:14] LABS: SARS-CoV-2 PCR by NAA DETECTED (NotDetected)
[2022-01-24] MEDS: Enoxaparin Sodium 40 MG/0.4 ML SYRINGE SC SCH (21:28)
[2022-01-24 21:59] LABS: Vancomycin, Trough 24.9 ug/mL
[2022-01-24] MEDS: Vancomycin HCl 750 MG in Sodium Chloride 0.9% 250 ML 250 ML IVPB SCH (23:44)
[2022-01-25 06:03] LABS: Magnesium 1.8 mg/dL (1.6-2.6)
[2022-01-25] MEDS ORDERED: Magnesium 2 GM/50 ML(in water) 2 GM in Premix Bag 1 BAG IVPB SCH (07:00)
[2022-01-25] MEDS: Vancomycin HCl 750 MG in Sodium Chloride 0.9% 250 ML 250 ML IVPB SCH ×2 (07:59→15:38)
[2022-01-25] MEDS: Atorvastatin Calcium 40 MG TAB PO SCH (08:00)
[2022-01-25] MEDS: Cholecalciferol (Vitamin D3) 400 UNITS TAB PO SCH (08:00)
[2022-01-25] MEDS: Zinc Sulfate 220 MG CAP PO SCH (08:00)
[2022-01-25] MEDS: Ascorbic Acid 500 mg Chewable Tablet PO SCH (08:00)
[2022-01-25] MEDS: Aspirin 81 mg Enteric Coated Tablet PO SCH ×2 (08:00→21:45)
[2022-01-25] MEDS: Saccharomyces boulardii 250 MG CAP PO SCH (08:00)
[2022-01-25] MEDS: Montelukast Sodium 10 mg Tablet PO SCH (08:00)
[2022-01-25] MEDS: Acetaminophen 325 MG TAB PO PRN (08:00)
[2022-01-25 08:20] LABS: Anion Gap 14 mmol/L (10-20); BUN (Urea Nitrogen) 6 mg/dL (9.8-20.1); Calc. Creatinine Clearance 97 mL/min (70-130); Calcium 7.9 mg/dL (7.8-10.44); Carbon Dioxide 22 mmol/L (23-31); Chloride 103 mmol/L (98-107); Glucose 100 mg/dL (83-110); Sodium 136 mmol/L (136-145)
[2022-01-25] MEDS: Mometasone 100 MCG/Formoterol 5 MCG 120 PUFF INHALER INH SCH ×2 (08:39→19:30)
[2022-01-25] MEDS ORDERED: Potassium Chloride 20 MEQ TAB PO SCH ×2 (09:00→14:15)
[2022-01-25 17:19] LABS: Magnesium 2.1 mg/dL (1.6-2.6); Potassium 3.7 mmol/L (3.5-5.1)
[2022-01-25] MEDS ORDERED: Diltiazem HCl SR 60 mg Capsule PO SCH (21:00)
[2022-01-25] MEDS: Diltiazem HCl SR 60 mg Capsule PO SCH (21:45)
[2022-01-25] MEDS: Apixaban 2.5 MG TAB PO SCH (21:45)
[2022-01-25 23:25] LABS: Vancomycin, Trough 21.4 ug/mL
[2022-01-26] MEDS: Vancomycin HCl 750 MG in Sodium Chloride 0.9% 250 ML 250 ML IVPB SCH ×4 (02:06→23:59)
[2022-01-26 05:01] LABS: #Eosinphils 0.1 thou/uL (0.0-0.7); #Lymphocytes 2.6 thou/uL (1.20-3.40); #Monocytes 1.2 thou/uL (0.11-0.59); #Neutrophils 10.4 thou/uL (1.40-6.50); %Basophils 0.3 % (0.0-1.0); %Eosinophils 0.9 % (0.0-10.0); %Lymphocytes 17.9 % (21.0-51.0); %Monocytes 8.2 % (0.0-10.0); %Neutrophils 72.7 % (42.0-75.0); Hemoglobin 9.6 g/dL (12.0-16.0); Mean Corpuscular HGB CONC 32.5 g/dL (32.0-36.0); Mean Corpuscular Hemoglobin 30.6 pg (27.0-31.0); Mean Corpuscular Volume 94.1 fL (78.0-98.0); Mean Platelet Volume 5.8 fL (7.4-10.4); Platelet Count 608 thou/uL (130-400); RBC Distribution Width 13.4 % (11.5-14.5); Red Blood Cell (RBC) Count 3.14 mill/uL (4.20-5.40); White Blood Cell (WBC) Count 14.3 thou/uL (4.8-10.8)
[2022-01-26 05:17] LABS: Anion Gap 9 mmol/L (10-20); BUN (Urea Nitrogen) 5 mg/dL (9.8-20.1); Calc. Creatinine Clearance 87 mL/min (70-130); Carbon Dioxide 24 mmol/L (23-31); Chloride 106 mmol/L (98-107); Glucose 112 mg/dL (83-110); Potassium 3.6 mmol/L (3.5-5.1); Sodium 135 mmol/L (136-145)
[2022-01-26] MEDS ORDERED: Magnesium 2 GM/50 ML(in water) 2 GM in Premix Bag 1 BAG IVPB SCH (05:45)
[2022-01-26] MEDS: Mometasone 100 MCG/Formoterol 5 MCG 120 PUFF INHALER INH SCH ×2 (06:48→19:30)
[2022-01-26] MEDS: Ascorbic Acid 500 mg Chewable Tablet PO SCH (08:20)
[2022-01-26] MEDS: Montelukast Sodium 10 mg Tablet PO SCH (08:20)
[2022-01-26] MEDS: Atorvastatin Calcium 40 MG TAB PO SCH (08:20)
[2022-01-26] MEDS: Zinc Sulfate 220 MG CAP PO SCH (08:20)
[2022-01-26] MEDS: Diltiazem HCl SR 60 mg Capsule PO SCH ×3 (08:20→21:40)
[2022-01-26] MEDS: Apixaban 2.5 MG TAB PO SCH ×2 (08:20→21:41)
[2022-01-26] MEDS: Polyethylene Glycol 3350 17 GM Packet PO SCH (08:20)
[2022-01-26] MEDS: Saccharomyces boulardii 250 MG CAP PO SCH (08:20)
[2022-01-26] MEDS: Aspirin 81 mg Enteric Coated Tablet PO SCH ×2 (08:20→21:40)
[2022-01-26] MEDS: Cholecalciferol (Vitamin D3) 400 UNITS TAB PO SCH (08:23)
[2022-01-26] MEDS: traMADol HCl 50 MG TAB PO PRN ×2 (10:23→18:16)
[2022-01-26 23:31] LABS: Vancomycin, Trough 21.5 ug/mL
[2022-01-27] MEDS: Mometasone 100 MCG/Formoterol 5 MCG 120 PUFF INHALER INH SCH (07:45)
[2022-01-27] MEDS: Montelukast Sodium 10 mg Tablet PO SCH (09:08)
[2022-01-27] MEDS: Diltiazem HCl SR 60 mg Capsule PO SCH (09:08)
[2022-01-27] MEDS: Ascorbic Acid 500 mg Chewable Tablet PO SCH (09:08)
[2022-01-27] MEDS: Aspirin 81 mg Enteric Coated Tablet PO SCH (09:08)
[2022-01-27] MEDS: Cholecalciferol (Vitamin D3) 400 UNITS TAB PO SCH (09:08)
[2022-01-27] MEDS: Saccharomyces boulardii 250 MG CAP PO SCH (09:08)
[2022-01-27] MEDS: Zinc Sulfate 220 MG CAP PO SCH (09:08)
[2022-01-27] MEDS: Atorvastatin Calcium 40 MG TAB PO SCH (09:08)
[2022-01-27] MEDS: Polyethylene Glycol 3350 17 GM Packet PO SCH (09:09)
[2022-01-27] MEDS: Apixaban 2.5 MG TAB PO SCH (09:09)
[2022-01-27] MEDS: Vancomycin HCl 750 MG in Sodium Chloride 0.9% 250 ML 250 ML IVPB SCH (09:09)
[2022-01-27] MEDS ORDERED: Arformoterol 15 MCG/2 ML NEB NEB PRN (10:44)
[2022-01-27] MEDS ORDERED: Escitalopram Oxalate 20 mg Tablet PO SCH (11:00)
[2022-01-27 11:28] VITALS: BP 111/53; TEMP 98
[2022-01-27] MEDS ORDERED: Gabapentin 300 MG CAP PO SCH (15:00)
[2022-01-27] MEDS ORDERED: Magnesium Oxide 400 MG TAB PO SCH (21:00)
[2022-01-27] MEDS ORDERED: Senokot S 8.6-50 MG TAB PO SCH (21:00)
[2022-01-28] MEDS ORDERED: Floranex 1 GM Packet PO SCH (09:00)
[2022-01-28] MEDS ORDERED: Multivit, Therapeutic 1 TAB PO SCH (09:00)
[2022-01-28] MEDS ORDERED: Escitalopram Oxalate 20 mg Tablet PO SCH (09:00)
== END 2022-01-27 13:15 | DRG 853 ==
LOC: SURG B 19:31 → 2NO 01-25 16:34
PROVIDERS: ADMIT Internal Medicine; ATTEND Emergency Medicine
PROC: 8E0ZXY6 Isolation (ICD-10-PCS; principal; 2022-01-18)
PROC: 3E03329 Introduction of Other Anti-infective into Peripheral Vein, Percutaneous Approach (ICD-10-PCS; 2022-01-18)
PROC: 0JBR0ZZ Excision of Left Foot Subcutaneous Tissue and Fascia, Open Approach (ICD-10-PCS; 2022-01-19)
DX: A41.02 Sepsis due to Methicillin resistant Staphylococcus aureus (principal); U07.1 COVID-19; I47.1 Supraventricular tachycardia; J96.10 Chronic respiratory failure, unspecified whether with hypoxia or hypercapnia; N18.9 Chronic kidney disease, unspecified; J44.9 Chronic obstructive pulmonary disease, unspecified; F41.9 Anxiety disorder, unspecified; I48.0 Paroxysmal atrial fibrillation; E78.5 Hyperlipidemia, unspecified; I12.9 Hypertensive chronic kidney disease with stage 1 through stage 4 chronic kidney disease, or unspecified chronic kidney disease; I25.10 Atherosclerotic heart disease of native coronary artery without angina pectoris; L89.621 Pressure ulcer of left heel, stage 1; L89.152 Pressure ulcer of sacral region, stage 2; R33.9 Retention of urine, unspecified; E87.6 Hypokalemia; E86.1 Hypovolemia; Z79.82 Long term (current) use of aspirin; Z79.899 Other long term (current) drug therapy; Z74.01 Bed confinement status; Z87.440 Personal history of urinary (tract) infections
CPT/HCPCS: 36415; 74176; 80048; 80202; 83735; 84145; 85025; 86140; 87086; 93005; 93010; 93306; J0692; J1650; J2405; J3370; J3475; J3490; J7050; U0003; U0005

== ENCOUNTER 2022-02-21 17:23 | Inpatient (IN) | payer MEDICARE, MEDICAID ==
[2022-02-21 21:45] VITALS: BMI 15.6
[2022-02-22 05:13] LABS: Cardiac Risk 4.6 (Less than 4.5)
[2022-02-22 05:32] LABS: Bacteria/HPF 1+ HPF (None Seen); Bilirubin Negative (Negative); Blood, Urine 3+ (Negative); Clarity Turbid (Clear); Glucose, Urine (Dipstick) Normal (Negative); Ketone, Urine Negative (Negative); Leukocyte 500 Leu/uL (Negative); Nitrite Negative (Negative); Protein, Urine (Dipstick) 30 mg/dL (Neg-Trace); RBC/HPF Greater than 50 HPF (0-3); Specific Gravity, Urine 1.023 (1.002-1.036); Squamous Epithelial 0-3 HPF (0-3); Urobilinogen Normal mg/dL (Less than 2); WBC/HPF Greater than 50 HPF (0-3); Yeast-Budding Rare HPF (None Seen)
[2022-02-22 05:33] LABS: Urine Culture Reflex Yes Yes
[2022-02-22] MEDS: Aspirin 81 mg Enteric Coated Tablet PO SCH (09:26)
[2022-02-22] MEDS: cefTRIAXone\\ROCEPHIN 1 GM in Sodium Chloride 0.9% 100 ML IVPB SCH (18:45)
[2022-02-22] MEDS: Atorvastatin Calcium 40 MG TAB PO SCH (20:19)
[2022-02-23 05:00] LABS: #Basophils 0.1 thou/uL (0.0-0.2); #Eosinphils 0.1 thou/uL (0.0-0.7); #Lymphocytes 2.4 thou/uL (1.20-3.40); #Monocytes 1.1 thou/uL (0.11-0.59); #Neutrophils 8.3 thou/uL (1.40-6.50); %Basophils 0.8 % (0.0-1.0); %Eosinophils 0.8 % (0.0-10.0); %Lymphocytes 20.1 % (21.0-51.0); %Monocytes 8.8 % (0.0-10.0); %Neutrophils 69.5 % (42.0-75.0); Mean Corpuscular Hemoglobin 29.6 pg (27.0-31.0); Mean Corpuscular Volume 89.8 fL (78.0-98.0); Mean Platelet Volume 6.2 fL (7.4-10.4); Platelet Count 630 thou/uL (130-400); RBC Distribution Width 14.2 % (11.5-14.5); Red Blood Cell (RBC) Count 3.37 mill/uL (4.20-5.40); White Blood Cell (WBC) Count 11.9 thou/uL (4.8-10.8)
[2022-02-23 05:28] LABS: ALT (SGPT) 57 U/L (8-55); AST (SGOT) 44 U/L (5-34); Albumin 3.3 g/dL (3.4-4.8); Alkaline Phosphatase 123 U/L (40-110); Anion Gap 14 mmol/L (10-20); BUN (Urea Nitrogen) 17 mg/dL (9.8-20.1); Bilirubin, Total 0.4 mg/dL (0.2-1.2); Calc. Creatinine Clearance 53 mL/min (70-130); Calcium 9.3 mg/dL (7.8-10.44); Carbon Dioxide 20 mmol/L (23-31); Chloride 104 mmol/L (98-107); Globulin 4.2 g/dL (2.4-3.5); Glucose 118 mg/dL (83-110); Potassium 3.1 mmol/L (3.5-5.1); Protein, Total 7.5 g/dL (5.8-8.1); Sodium 135 mmol/L (136-145)
[2022-02-23] MEDS ORDERED: Artificial Tear Sol 15 ML BOT EA EYE PRN (09:16)
[2022-02-23] MEDS: Aspirin 81 mg Enteric Coated Tablet PO SCH (10:25)
[2022-02-23] MEDS: cefTRIAXone\\ROCEPHIN 1 GM in Sodium Chloride 0.9% 100 ML IVPB SCH (17:18)
[2022-02-23] MEDS: Apixaban 2.5 MG TAB PO SCH (20:27)
[2022-02-23] MEDS: Atorvastatin Calcium 40 MG TAB PO SCH (20:28)
[2022-02-23] MEDS: Diltiazem HCl SR 60 mg Capsule PO SCH (20:28)
[2022-02-23] MEDS ORDERED: Aspirin 81 mg Enteric Coated Tablet PO SCH (21:00)
[2022-02-23] MEDS ORDERED: Metoprolol Tartrate 5 MG/5 ML VIAL IVP SCH (21:00)
[2022-02-23] MEDS ORDERED: Diltiazem 125 MG in Sodium Chloride 0.9% 100 ML IVPB SCH (22:15)
[2022-02-24] MEDS ORDERED: Ascorbic Acid 500 mg Chewable Tablet PO SCH (09:00)
[2022-02-24] MEDS ORDERED: Atorvastatin Calcium 40 MG TAB PO SCH (09:00)
[2022-02-24 09:41] LABS: Hemoglobin 10.9 g/dL (12.0-16.0); Platelet Count 669 thou/uL (130-400)
[2022-02-24] MEDS: Cholecalciferol (Vitamin D3) 400 UNITS TAB PO SCH (10:00)
[2022-02-24] MEDS: Aspirin 81 mg Enteric Coated Tablet PO SCH (10:00)
[2022-02-24] MEDS ORDERED: Potassium Chloride 20 MEQ TAB PO SCH (10:00)
[2022-02-24] MEDS: Ascorbic Acid 500 mg Chewable Tablet PO SCH (10:00)
[2022-02-24] MEDS: Diltiazem HCl SR 60 mg Capsule PO SCH ×2 (10:00→20:52)
[2022-02-24] MEDS: Escitalopram Oxalate 20 mg Tablet PO SCH (10:00)
[2022-02-24] MEDS: Apixaban 2.5 MG TAB PO SCH ×2 (10:00→20:52)
[2022-02-24] MEDS: cefTRIAXone\\ROCEPHIN 1 GM in Sodium Chloride 0.9% 100 ML IVPB SCH (17:39)
[2022-02-24] MEDS: Atorvastatin Calcium 40 MG TAB PO SCH (20:52)
[2022-02-25 06:42] LABS: #Basophils 0.1 thou/uL (0.0-0.2); #Eosinphils 0.1 thou/uL (0.0-0.7); #Lymphocytes 2.5 thou/uL (1.20-3.40); #Monocytes 1.1 thou/uL (0.11-0.59); #Neutrophils 10.3 thou/uL (1.40-6.50); %Basophils 0.5 % (0.0-1.0); %Eosinophils 0.4 % (0.0-10.0); %Monocytes 7.5 % (0.0-10.0); %Neutrophils 73.5 % (42.0-75.0); Hemoglobin 10.6 g/dL (12.0-16.0); Mean Corpuscular HGB CONC 32.6 g/dL (32.0-36.0); Mean Corpuscular Hemoglobin 29.2 pg (27.0-31.0); Mean Corpuscular Volume 89.4 fL (78.0-98.0); Mean Platelet Volume 6.1 fL (7.4-10.4); Platelet Count 668 thou/uL (130-400); RBC Distribution Width 14.5 % (11.5-14.5); Red Blood Cell (RBC) Count 3.62 mill/uL (4.20-5.40)
[2022-02-25 07:05] LABS: Anion Gap 14 mmol/L (10-20); BUN (Urea Nitrogen) 19 mg/dL (9.8-20.1); Calc. Creatinine Clearance 53 mL/min (70-130); Calcium 9.5 mg/dL (7.8-10.44); Carbon Dioxide 23 mmol/L (23-31); Chloride 104 mmol/L (98-107); Glucose 120 mg/dL (83-110); Magnesium 1.8 mg/dL (1.6-2.6); Potassium 3.7 mmol/L (3.5-5.1); Sodium 137 mmol/L (136-145)
[2022-02-25] MEDS: Cholecalciferol (Vitamin D3) 400 UNITS TAB PO SCH (09:21)
[2022-02-25] MEDS: Escitalopram Oxalate 20 mg Tablet PO SCH (09:21)
[2022-02-25] MEDS: Diltiazem HCl SR 60 mg Capsule PO SCH ×2 (09:21→20:45)
[2022-02-25] MEDS: Ascorbic Acid 500 mg Chewable Tablet PO SCH (09:21)
[2022-02-25] MEDS: Aspirin 81 mg Enteric Coated Tablet PO SCH (11:40)
[2022-02-25] MEDS ORDERED: Apixaban 2.5 MG TAB PO SCH (11:45)
[2022-02-25] MEDS: cefTRIAXone\\ROCEPHIN 1 GM in Sodium Chloride 0.9% 100 ML IVPB SCH (17:31)
[2022-02-25] MEDS ORDERED: Magnesium 2 GM/50 ML(in water) 2 GM in Premix Bag 1 BAG IVPB SCH (17:45)
[2022-02-25] MEDS ORDERED: Metoprolol Tartrate 5 MG/5 ML VIAL ONE (19:38)
[2022-02-25] MEDS: Apixaban 2.5 MG TAB PO SCH (20:44)
[2022-02-25] MEDS: Atorvastatin Calcium 40 MG TAB PO SCH (20:44)
[2022-02-25] MEDS ORDERED: Dronedarone HCl 400 MG TAB PO SCH (21:30)
[2022-02-26 05:11] LABS: #Basophils 0.1 thou/uL (0.0-0.2); #Eosinphils 0.1 thou/uL (0.0-0.7); #Lymphocytes 3.2 thou/uL (1.20-3.40); #Monocytes 1.4 thou/uL (0.11-0.59); #Neutrophils 12.3 thou/uL (1.40-6.50); %Basophils 0.3 % (0.0-1.0); %Eosinophils 0.5 % (0.0-10.0); %Lymphocytes 18.8 % (21.0-51.0); %Monocytes 7.9 % (0.0-10.0); %Neutrophils 72.3 % (42.0-75.0); Hemoglobin 10.8 g/dL (12.0-16.0); Mean Corpuscular HGB CONC 32.4 g/dL (32.0-36.0); Mean Corpuscular Hemoglobin 29.6 pg (27.0-31.0); Mean Corpuscular Volume 91.5 fL (78.0-98.0); Mean Platelet Volume 6.4 fL (7.4-10.4); Platelet Count 651 thou/uL (130-400); RBC Distribution Width 14.8 % (11.5-14.5); Red Blood Cell (RBC) Count 3.63 mill/uL (4.20-5.40); White Blood Cell (WBC) Count 16.9 thou/uL (4.8-10.8)
[2022-02-26 05:33] LABS: Anion Gap 18 mmol/L (10-20); BUN (Urea Nitrogen) 23 mg/dL (9.8-20.1); Calc. Creatinine Clearance 58 mL/min (70-130); Calcium 9.4 mg/dL (7.8-10.44); Carbon Dioxide 21 mmol/L (23-31); Chloride 101 mmol/L (98-107); Glucose 111 mg/dL (83-110); Potassium 3.5 mmol/L (3.5-5.1); Sodium 136 mmol/L (136-145)
[2022-02-26] MEDS: Escitalopram Oxalate 20 mg Tablet PO SCH (09:17)
[2022-02-26] MEDS: metroNIDAZOLE 500 MG TAB PO SCH ×2 (09:17→20:28)
[2022-02-26] MEDS: Ascorbic Acid 500 mg Chewable Tablet PO SCH (09:17)
[2022-02-26] MEDS: Cholecalciferol (Vitamin D3) 400 UNITS TAB PO SCH (09:17)
[2022-02-26] MEDS: Dronedarone HCl 400 MG TAB PO SCH ×2 (09:17→17:03)
[2022-02-26] MEDS: Aspirin 81 mg Enteric Coated Tablet PO SCH (09:17)
[2022-02-26] MEDS: Apixaban 2.5 MG TAB PO SCH ×2 (09:17→20:28)
[2022-02-26] MEDS ORDERED: HYDROmorphone 0.5 MG/0.5 ML SYRINGE SLOW IVP SCH (15:45)
[2022-02-26] MEDS: cefTRIAXone\\ROCEPHIN 1 GM in Sodium Chloride 0.9% 100 ML IVPB SCH (17:04)
[2022-02-26] MEDS: Atorvastatin Calcium 40 MG TAB PO SCH (20:28)
[2022-02-27 04:52] LABS: #Basophils 0.1 thou/uL (0.0-0.2); #Eosinphils 0.1 thou/uL (0.0-0.7); #Lymphocytes 3.3 thou/uL (1.20-3.40); #Monocytes 1.2 thou/uL (0.11-0.59); #Neutrophils 9.3 thou/uL (1.40-6.50); %Basophils 0.5 % (0.0-1.0); %Eosinophils 0.8 % (0.0-10.0); %Lymphocytes 23.5 % (21.0-51.0); %Monocytes 8.4 % (0.0-10.0); %Neutrophils 66.8 % (42.0-75.0); Hemoglobin 10.4 g/dL (12.0-16.0); Mean Corpuscular HGB CONC 31.7 g/dL (32.0-36.0); Mean Corpuscular Hemoglobin 28.5 pg (27.0-31.0); Mean Corpuscular Volume 90.1 fL (78.0-98.0); Mean Platelet Volume 6.7 fL (7.4-10.4); Platelet Count 631 thou/uL (130-400); RBC Distribution Width 14.8 % (11.5-14.5); Red Blood Cell (RBC) Count 3.63 mill/uL (4.20-5.40)
[2022-02-27 05:22] LABS: Anion Gap 16 mmol/L (10-20); BUN (Urea Nitrogen) 23 mg/dL (9.8-20.1); Calc. Creatinine Clearance 54 mL/min (70-130); Calcium 9.3 mg/dL (7.8-10.44); Carbon Dioxide 21 mmol/L (23-31); Chloride 104 mmol/L (98-107); Glucose 103 mg/dL (83-110); Potassium 3.5 mmol/L (3.5-5.1); Sodium 137 mmol/L (136-145)
[2022-02-27] MEDS ORDERED: HYDROmorphone 0.5 MG/0.5 ML SYRINGE SLOW IVP SCH (08:00)
[2022-02-27] MEDS: metroNIDAZOLE 500 MG TAB PO SCH ×2 (09:24→21:08)
[2022-02-27] MEDS: Ascorbic Acid 500 mg Chewable Tablet PO SCH (09:24)
[2022-02-27] MEDS: Aspirin 81 mg Enteric Coated Tablet PO SCH (09:24)
[2022-02-27] MEDS: Escitalopram Oxalate 20 mg Tablet PO SCH (09:25)
[2022-02-27] MEDS: Apixaban 2.5 MG TAB PO SCH ×2 (09:25→21:08)
[2022-02-27] MEDS: Dronedarone HCl 400 MG TAB PO SCH ×2 (09:25→17:34)
[2022-02-27] MEDS: Cholecalciferol (Vitamin D3) 400 UNITS TAB PO SCH (09:27)
[2022-02-27] MEDS: cefTRIAXone\\ROCEPHIN 1 GM in Sodium Chloride 0.9% 100 ML IVPB SCH (17:34)
[2022-02-27] MEDS: HYDROcodone/Acetaminophen 5/325 mg Tablet PO PRN (21:08)
[2022-02-27] MEDS: Atorvastatin Calcium 40 MG TAB PO SCH (21:08)
[2022-02-28 05:48] LABS: #Basophils 0.1 thou/uL (0.0-0.2); #Eosinphils 0.2 thou/uL (0.0-0.7); #Lymphocytes 3.1 thou/uL (1.20-3.40); #Monocytes 1.1 thou/uL (0.11-0.59); #Neutrophils 9.3 thou/uL (1.40-6.50); %Basophils 0.8 % (0.0-1.0); %Eosinophils 1.8 % (0.0-10.0); %Lymphocytes 22.1 % (21.0-51.0); %Neutrophils 67.3 % (42.0-75.0); Hemoglobin 10.3 g/dL (12.0-16.0); Mean Corpuscular HGB CONC 32.4 g/dL (32.0-36.0); Mean Corpuscular Hemoglobin 29.6 pg (27.0-31.0); Mean Corpuscular Volume 91.6 fL (78.0-98.0); Platelet Count 525 thou/uL (130-400); RBC Distribution Width 14.8 % (11.5-14.5); Red Blood Cell (RBC) Count 3.47 mill/uL (4.20-5.40); White Blood Cell (WBC) Count 13.8 thou/uL (4.8-10.8)
[2022-02-28 06:08] LABS: Anion Gap 13 mmol/L (10-20); BUN (Urea Nitrogen) 28 mg/dL (9.8-20.1); Calc. Creatinine Clearance 54 mL/min (70-130); Calcium 9.3 mg/dL (7.8-10.44); Carbon Dioxide 26 mmol/L (23-31); Glucose 100 mg/dL (83-110); Potassium 3.5 mmol/L (3.5-5.1)
[2022-02-28 06:16] LABS: Chloride 104 mmol/L (98-107); Sodium 139 mmol/L (136-145)
[2022-02-28] MEDS: Apixaban 2.5 MG TAB PO SCH (09:21)
[2022-02-28] MEDS: Cholecalciferol (Vitamin D3) 400 UNITS TAB PO SCH (09:21)
[2022-02-28] MEDS: metroNIDAZOLE 500 MG TAB PO SCH ×2 (09:21→20:58)
[2022-02-28] MEDS: Ascorbic Acid 500 mg Chewable Tablet PO SCH (09:21)
[2022-02-28] MEDS: Dronedarone HCl 400 MG TAB PO SCH ×2 (09:21→16:38)
[2022-02-28] MEDS: Escitalopram Oxalate 20 mg Tablet PO SCH (09:21)
[2022-02-28] MEDS: Aspirin 81 mg Enteric Coated Tablet PO SCH (09:21)
[2022-02-28] MEDS: cefTRIAXone\\ROCEPHIN 1 GM in Sodium Chloride 0.9% 100 ML IVPB SCH (18:08)
[2022-02-28] MEDS: Dextrose 5 %-0.45 % NaCl 1,000 ML IV SCH (19:29)
[2022-02-28] MEDS: Atorvastatin Calcium 40 MG TAB PO SCH (20:58)
[2022-02-28] MEDS: Apixaban 5 MG TAB PO SCH (20:58)
[2022-03-01] MEDS: Dextrose 5 %-0.45 % NaCl 1,000 ML IV SCH ×2 (07:39→20:26)
[2022-03-01] MEDS: Aspirin 81 mg Enteric Coated Tablet PO SCH (09:15)
[2022-03-01] MEDS: Escitalopram Oxalate 20 mg Tablet PO SCH (09:15)
[2022-03-01] MEDS: Dronedarone HCl 400 MG TAB PO SCH ×2 (09:15→17:04)
[2022-03-01] MEDS: Ascorbic Acid 500 mg Chewable Tablet PO SCH (09:15)
[2022-03-01] MEDS: metroNIDAZOLE 500 MG TAB PO SCH ×2 (09:16→20:26)
[2022-03-01] MEDS: Apixaban 5 MG TAB PO SCH ×2 (09:16→20:26)
[2022-03-01] MEDS: Cholecalciferol (Vitamin D3) 400 UNITS TAB PO SCH (09:16)
[2022-03-01] MEDS: HYDROcodone/Acetaminophen 5/325 mg Tablet PO PRN (11:09)
[2022-03-01] MEDS: cefTRIAXone\\ROCEPHIN 1 GM in Sodium Chloride 0.9% 100 ML IVPB SCH (17:05)
[2022-03-01] MEDS: Atorvastatin Calcium 40 MG TAB PO SCH (20:26)
[2022-03-02] MEDS: Dextrose 5 %-0.45 % NaCl 1,000 ML IV SCH ×2 (08:53→23:44)
[2022-03-02] MEDS: Apixaban 5 MG TAB PO SCH ×2 (08:55→22:42)
[2022-03-02] MEDS: Cholecalciferol (Vitamin D3) 400 UNITS TAB PO SCH (08:55)
[2022-03-02] MEDS: Aspirin 81 mg Enteric Coated Tablet PO SCH (08:55)
[2022-03-02] MEDS: Ascorbic Acid 500 mg Chewable Tablet PO SCH (08:55)
[2022-03-02] MEDS: Escitalopram Oxalate 20 mg Tablet PO SCH (08:55)
[2022-03-02] MEDS: Doxycycline 100 MG CAP PO SCH ×2 (08:55→22:42)
[2022-03-02] MEDS: Dronedarone HCl 400 MG TAB PO SCH ×2 (08:55→16:00)
[2022-03-02] MEDS: HYDROcodone/Acetaminophen 5/325 mg Tablet PO PRN (13:34)
[2022-03-02] MEDS: Atorvastatin Calcium 40 MG TAB PO SCH (22:42)
[2022-03-03] MEDS: Doxycycline 100 MG CAP PO SCH ×2 (09:07→21:54)
[2022-03-03] MEDS: Ascorbic Acid 500 mg Chewable Tablet PO SCH (09:07)
[2022-03-03] MEDS: Dronedarone HCl 400 MG TAB PO SCH ×2 (09:07→16:31)
[2022-03-03] MEDS: Apixaban 5 MG TAB PO SCH ×2 (09:07→21:54)
[2022-03-03] MEDS: Escitalopram Oxalate 20 mg Tablet PO SCH (09:07)
[2022-03-03] MEDS: Aspirin 81 mg Enteric Coated Tablet PO SCH (09:07)
[2022-03-03] MEDS: Cholecalciferol (Vitamin D3) 400 UNITS TAB PO SCH (09:07)
[2022-03-03] MEDS: HYDROcodone/Acetaminophen 5/325 mg Tablet PO PRN (12:30)
[2022-03-03] MEDS: Dextrose 5 %-0.45 % NaCl 1,000 ML IV SCH (13:47)
[2022-03-03] MEDS: Atorvastatin Calcium 40 MG TAB PO SCH (21:54)
[2022-03-04] MEDS: Dextrose 5 %-0.45 % NaCl 1,000 ML IV SCH ×2 (02:32→16:07)
[2022-03-04] MEDS: Cholecalciferol (Vitamin D3) 400 UNITS TAB PO SCH (08:26)
[2022-03-04] MEDS: Aspirin 81 mg Enteric Coated Tablet PO SCH (08:26)
[2022-03-04] MEDS: Dronedarone HCl 400 MG TAB PO SCH ×2 (08:26→16:08)
[2022-03-04] MEDS: Doxycycline 100 MG CAP PO SCH ×2 (08:26→20:21)
[2022-03-04] MEDS: Ascorbic Acid 500 mg Chewable Tablet PO SCH (08:26)
[2022-03-04] MEDS: Apixaban 5 MG TAB PO SCH ×2 (08:26→20:20)
[2022-03-04] MEDS: Escitalopram Oxalate 20 mg Tablet PO SCH (08:27)
[2022-03-04] MEDS: Atorvastatin Calcium 40 MG TAB PO SCH (20:21)
[2022-03-05] MEDS: Dextrose 5 %-0.45 % NaCl 1,000 ML IV SCH ×2 (04:42→17:26)
[2022-03-05] MEDS: Aspirin 81 mg Enteric Coated Tablet PO SCH (08:44)
[2022-03-05] MEDS: Apixaban 5 MG TAB PO SCH (08:44)
[2022-03-05] MEDS: Cholecalciferol (Vitamin D3) 400 UNITS TAB PO SCH (08:44)
[2022-03-05] MEDS: Escitalopram Oxalate 20 mg Tablet PO SCH (08:44)
[2022-03-05] MEDS: Dronedarone HCl 400 MG TAB PO SCH ×2 (08:44→17:25)
[2022-03-05] MEDS: Doxycycline 100 MG CAP PO SCH (08:44)
[2022-03-05] MEDS: Ascorbic Acid 500 mg Chewable Tablet PO SCH (08:44)
[2022-03-05 16:09] VITALS: BP 154/86; TEMP 97.5
== END 2022-03-05 18:15 | DRG 853 ==
LOC: NEURO 17:23 → OBSVTOIN 02-23 14:57
PROVIDERS: ADMIT Family Medicine; ATTEND Hospitalist
PROC: 3E03329 Introduction of Other Anti-infective into Peripheral Vein, Percutaneous Approach (ICD-10-PCS; 2022-02-23)
PROC: 0JBR0ZZ Excision of Left Foot Subcutaneous Tissue and Fascia, Open Approach (ICD-10-PCS; principal; 2022-03-02)
DX: A41.9 Sepsis, unspecified organism (principal); G93.41 Metabolic encephalopathy; E43 Unspecified severe protein-calorie malnutrition; N39.0 Urinary tract infection, site not specified; I47.1 Supraventricular tachycardia; J96.10 Chronic respiratory failure, unspecified whether with hypoxia or hypercapnia; R64 Cachexia; Z68.1 Body mass index [BMI] 19.9 or less, adult; G45.9 Transient cerebral ischemic attack, unspecified; M86.172 Other acute osteomyelitis, left ankle and foot; Z20.822 Contact with and (suspected) exposure to COVID-19; R65.20 Severe sepsis without septic shock; F03.90 Unspecified dementia, unspecified severity, without behavioral disturbance, psychotic disturbance, mood disturbance, and anxiety; I10 Essential (primary) hypertension; E78.5 Hyperlipidemia, unspecified; I25.10 Atherosclerotic heart disease of native coronary artery without angina pectoris; J44.9 Chronic obstructive pulmonary disease, unspecified; L89.620 Pressure ulcer of left heel, unstageable; D32.0 Benign neoplasm of cerebral meninges; G93.89 Other specified disorders of brain; L89.150 Pressure ulcer of sacral region, unstageable; I48.0 Paroxysmal atrial fibrillation; R31.0 Gross hematuria; Z79.51 Long term (current) use of inhaled steroids; Z79.01 Long term (current) use of anticoagulants; Z79.899 Other long term (current) drug therapy; Z74.01 Bed confinement status
CPT/HCPCS: 36415; 70450; 80048; 80053; 80061; 81001; 82274; 83605; 83735; 85014; 85018; 85025; 85049; 85652; 86140; 87040; 93005; 93010; 95712; 95819; 95957; 96374; G0378; J0696; J3475; J3490; J7042

== ENCOUNTER 2022-05-31 09:53 | Outpatient (CLI) | payer MEDICARE, MEDICAID ==
[2022-05-31] MEDS ORDERED: Magnevist 469MG/ML 20 ML VIAL ONE (12:01)
== END 2022-05-31 09:54 | disposition home or self-care (01) ==
LOC: TBSIIMAG 09:53
PROVIDERS: ATTEND Radiology Radiation Oncology
DX: D32.0 Benign neoplasm of cerebral meninges (principal); I77.89 Other specified disorders of arteries and arterioles
CPT/HCPCS: 70553; 82565; A9579

== ENCOUNTER 2022-06-03 21:15 | Inpatient (IN) | payer MEDICARE, MEDICAID ==
[~2022-06-03 21:15] MED LIST: Iopamidol-370 76% 500 ML 1 ML ONE
[2022-06-03 22:18] LABS: ALT (SGPT) 21 U/L (8-55); AST (SGOT) 35 U/L (5-34); Albumin 2.3 g/dL (3.4-4.8); Alkaline Phosphatase 153 U/L (40-110); Anion Gap 12 mmol/L (10-20); BUN (Urea Nitrogen) 16 mg/dL (9.8-20.1); Bilirubin, Total 0.4 mg/dL (0.2-1.2); Calc. Creatinine Clearance 0 mL/min (70-130); Calcium 8.4 mg/dL (7.8-10.44); Carbon Dioxide 25 mmol/L (23-31); Chloride 102 mmol/L (98-107); Estimated GFR 91; Globulin 4.5 g/dL (2.4-3.5); Glucose 104 mg/dL (83-110); Potassium 3.9 mmol/L (3.5-5.1); Protein, Total 6.8 g/dL (5.8-8.1); Sodium 135 mmol/L (136-145)
[2022-06-03 22:24] LABS: Bacteria/HPF 4+ HPF (None Seen); Bilirubin Negative (Negative); Blood, Urine 3+ (Negative); Clarity Extra Turbid (Clear); Glucose, Urine (Dipstick) Normal (Negative); Ketone, Urine Negative (Negative); Leukocyte 500 Leu/uL (Negative); Nitrite Negative (Negative); Protein, Urine (Dipstick) 30 mg/dL (Neg-Trace); RBC/HPF Greater than 50 HPF (0-3); Specific Gravity, Urine 1.023 (1.002-1.036); Squamous Epithelial None Seen HPF (0-3); Urobilinogen Normal mg/dL (Less than 2); WBC/HPF Greater than 50 HPF (0-3)
[2022-06-03 22:26] LABS: Hemoglobin 6.7 g/dL (12.0-16.0); Mean Corpuscular HGB CONC 29.2 g/dL (32.0-36.0); Mean Corpuscular Hemoglobin 23.6 pg (27.0-31.0); Mean Corpuscular Volume 80.8 fL (78.0-98.0); Platelet Count 914 thou/uL (130-400); RBC Distribution Width 17.2 % (11.5-14.5); Red Blood Cell (RBC) Count 2.84 mill/uL (4.20-5.40); White Blood Cell (WBC) Count 18.1 thou/uL (4.8-10.8)
[2022-06-03 22:27] LABS: #Eosinphils 0.1 thou/uL (0.0-0.7); #Lymphocytes 1.5 thou/uL (1.20-3.40); #Monocytes 0.9 thou/uL (0.11-0.59); #Neutrophils 15.6 thou/uL (1.40-6.50); %Basophils 0.2 % (0.0-1.0); %Eosinophils 0.5 % (0.0-10.0); %Lymphocytes 8.5 % (21.0-51.0); %Monocytes 4.9 % (0.0-10.0); %Neutrophils 85.9 % (42.0-75.0)
[2022-06-03 22:31] LABS: Anisocytosis SLIGHT = 6-15 cells (100X) (0-5/hpf); Elliptocytes SLIGHT = 2-5 cells (100X) (0-1/hpf); Hypochromia MODERATE=16-30 cells (100X) (0-5/hpf); MDiff Complete? YES; Platelet Morphology Comment Appears Increased; Polychromasia SLIGHT = 2-3 cells (100X) (0-2/hpf); Reflex for Review?? NO; Target Cells SLIGHT = 2-5 cells (100X) (0-1/hpf)
[2022-06-03] MEDS ORDERED: cefTRIAXone\\ROCEPHIN 2 GM VIAL ONE (23:37)
[2022-06-04 00:30] LABS: INR-International Normal Ratio 1.3; Prothrombin Time 15.9 sec (12.0-14.7)
[2022-06-04 00:31] LABS: PTT 42.4 sec (22.9-36.1)
[2022-06-04] MEDS ORDERED: Sodium Chloride 0.9% 1,000 ML IV SCH (03:30)
[2022-06-04] MEDS ORDERED: Acetaminophen 325 MG TAB PO PRN (03:30)
[2022-06-04] MEDS ORDERED: Ondansetron ODT 4 MG TAB SL PRN (03:30)
[2022-06-04] MEDS ORDERED: Ondansetron PF 4 MG/2 ML Vial IVP PRN (03:30)
[2022-06-04 03:53] VITALS: BMI 19.1
[2022-06-04 05:26] LABS: SARS-CoV-2 NAA Rapid Test Not Detected (NotDetected)
[2022-06-04] MEDS ORDERED: Pantoprazole 40 MG VIAL IVP SCH (05:30)
[2022-06-04] MEDS: Morphine 2 MG/ML VIAL SLOW IVP PRN (06:36)
[2022-06-04] MEDS ORDERED: Octreotide Acetate 100 MCG/ML VIAL SLOW IVP SCH (06:45)
[2022-06-04] MEDS: Octreotide Acetate 1,250 MCG in Sodium Chloride 0.9% 250 ML 250 ML IVPB SCH (06:58)
[2022-06-04 11:13] LABS: Hemoglobin 8.4 g/dL (12.0-16.0)
[2022-06-04 16:24] LABS: Hemoglobin 8.6 g/dL (12.0-16.0)
[2022-06-04] MEDS: Pantoprazole 40 MG VIAL IVP SCH (20:33)
[2022-06-04] MEDS: Sodium Chloride 0.9% 1,000 ML IV SCH (20:33)
[2022-06-04] MEDS ORDERED: cefTRIAXone\\ROCEPHIN 1 GM in Sodium Chloride 0.9% 100 ML IVPB SCH (21:00)
[2022-06-04 23:01] LABS: Hemoglobin 8.3 g/dL (12.0-16.0)
[2022-06-04] MEDS ORDERED: VANCOMYCIN 1.25 GM/250 ML BAG 1.25 GM in Premix Bag 1 BAG IVPB SCH (23:59)
[2022-06-05] MEDS: Octreotide Acetate 1,250 MCG in Sodium Chloride 0.9% 250 ML 250 ML IVPB SCH (02:29)
[2022-06-05] MEDS: Morphine 2 MG/ML VIAL SLOW IVP PRN ×2 (04:50→16:51)
[2022-06-05] MEDS: Sodium Chloride 0.9% 1,000 ML IV SCH ×2 (04:53→17:27)
[2022-06-05 06:32] LABS: #Eosinphils 0.1 thou/uL (0.0-0.7); #Lymphocytes 1.6 thou/uL (1.20-3.40); #Neutrophils 13.8 thou/uL (1.40-6.50); %Basophils 0.1 % (0.0-1.0); %Eosinophils 0.5 % (0.0-10.0); %Lymphocytes 9.7 % (21.0-51.0); %Monocytes 6.1 % (0.0-10.0); %Neutrophils 83.6 % (42.0-75.0); Hemoglobin 8.9 g/dL (12.0-16.0); Mean Corpuscular HGB CONC 30.1 g/dL (32.0-36.0); Platelet Count 903 thou/uL (130-400); Red Blood Cell (RBC) Count 3.57 mill/uL (4.20-5.40); White Blood Cell (WBC) Count 16.5 thou/uL (4.8-10.8)
[2022-06-05 06:45] LABS: ALT (SGPT) 17 U/L (8-55); AST (SGOT) 25 U/L (5-34); Albumin 2.2 g/dL (3.4-4.8); Alkaline Phosphatase 145 U/L (40-110); Anion Gap 13 mmol/L (10-20); BUN (Urea Nitrogen) 10 mg/dL (9.8-20.1); Bilirubin, Total 0.6 mg/dL (0.2-1.2); Calc. Creatinine Clearance 70 mL/min (70-130); Calcium 8.2 mg/dL (7.8-10.44); Carbon Dioxide 22 mmol/L (23-31); Chloride 102 mmol/L (98-107); Estimated GFR 93; Globulin 4.4 g/dL (2.4-3.5); Glucose 118 mg/dL (83-110); Lipase 8 U/L (8-78); Potassium 3.7 mmol/L (3.5-5.1); Protein, Total 6.6 g/dL (5.8-8.1); Sodium 133 mmol/L (136-145)
[2022-06-05] MEDS ORDERED: Piperacillin/Tazobactam 3.375 GM in Sodium Chloride 0.9% 100 ML IVPB SCH ×2 (07:30→09:00)
[2022-06-05] MEDS: Pantoprazole 40 MG VIAL IVP SCH (08:34)
[2022-06-05] MEDS ORDERED: PROPOFOL 200 MG/20 ML VIAL ONE (11:00)
[2022-06-05] MEDS ORDERED: Lidocaine 1% PF 5 ML VIAL ONE (11:00)
[2022-06-05] MEDS ORDERED: Ondansetron HCl/PF 4 MG/2 ML Vial IVP PRN (11:17)
[2022-06-05] MEDS: Vancomycin HCl 750 MG in Sodium Chloride 0.9% 250 ML 250 ML IVPB SCH ×2 (12:50→23:41)
[2022-06-05] MEDS: Piperacillin/Tazobactam 3.375 GM in Sodium Chloride 0.9% 100 ML IVPB SCH (16:50)
[2022-06-05] MEDS ORDERED: Metoprolol Tartrate 25 MG TAB PO SCH (23:51)
[2022-06-06] MEDS: Piperacillin/Tazobactam 3.375 GM in Sodium Chloride 0.9% 100 ML IVPB SCH ×3 (02:01→19:27)
[2022-06-06] MEDS: Sodium Chloride 0.9% 1,000 ML IV SCH ×2 (06:13→21:27)
[2022-06-06] MEDS: Pantoprazole 40 MG VIAL IVP SCH (09:13)
[2022-06-06] MEDS: Morphine 2 MG/ML VIAL SLOW IVP PRN ×2 (11:24→15:24)
[2022-06-06 12:05] LABS: Vancomycin, Trough 14.3 ug/mL
[2022-06-06] MEDS: Vancomycin HCl 750 MG in Sodium Chloride 0.9% 250 ML 250 ML IVPB SCH (15:08)
[2022-06-07] MEDS: Vancomycin HCl 750 MG in Sodium Chloride 0.9% 250 ML 250 ML IVPB SCH ×3 (00:12→23:57)
[2022-06-07] MEDS: Piperacillin/Tazobactam 3.375 GM in Sodium Chloride 0.9% 100 ML IVPB SCH ×3 (02:16→17:27)
[2022-06-07] MEDS: Pantoprazole 40 MG VIAL IVP SCH (08:00)
[2022-06-07] MEDS: Sodium Chloride 0.9% 1,000 ML IV SCH ×2 (11:47→23:57)
[2022-06-08] MEDS: Piperacillin/Tazobactam 3.375 GM in Sodium Chloride 0.9% 100 ML IVPB SCH ×3 (02:15→17:56)
[2022-06-08] MEDS ORDERED: Heparin 1,000 UNITS/ML VIAL ONE (08:54)
[2022-06-08] MEDS: Pantoprazole 40 MG VIAL IVP SCH (10:31)
[2022-06-08 11:35] LABS: Vancomycin, Trough 12.2 ug/mL
[2022-06-08] MEDS: Vancomycin HCl 750 MG in Sodium Chloride 0.9% 250 ML 250 ML IVPB SCH (13:32)
[2022-06-08] MEDS: Vancomycin 1 GM in Premix Bag 1 BAG IVPB SCH (13:37)
[2022-06-08] MEDS: Sodium Chloride 0.9% 1,000 ML IV SCH ×2 (13:37→17:57)
[2022-06-09] MEDS: Vancomycin 1 GM in Premix Bag 1 BAG IVPB SCH ×3 (00:13→12:46)
[2022-06-09] MEDS: Piperacillin/Tazobactam 3.375 GM in Sodium Chloride 0.9% 100 ML IVPB SCH ×2 (02:17→09:29)
[2022-06-09] MEDS: Sodium Chloride 0.9% 1,000 ML IV SCH ×2 (04:58→15:27)
[2022-06-09] MEDS: Pantoprazole 40 MG VIAL IVP SCH ×2 (09:29→09:43)
[2022-06-09 16:17] VITALS: BP 130/60; TEMP 97.3
[2022-06-09] MEDS: Morphine 2 MG/ML VIAL SLOW IVP PRN (16:18)
== END 2022-06-09 16:29 | DRG 377 ==
LOC: ERS 21:15 → SURG A 06-04 00:45
PROVIDERS: ADMIT Internal Medicine; ATTEND Internal Medicine
PROC: 30233N1 Transfusion of Nonautologous Red Blood Cells into Peripheral Vein, Percutaneous Approach (ICD-10-PCS; 2022-06-04)
PROC: 0W3P8ZZ Control Bleeding in Gastrointestinal Tract, Via Natural or Artificial Opening Endoscopic (ICD-10-PCS; 2022-06-05)
PROC: 02HV33Z Insertion of Infusion Device into Superior Vena Cava, Percutaneous Approach (ICD-10-PCS; principal; 2022-06-08)
PROC: B548ZZA Ultrasonography of Superior Vena Cava, Guidance (ICD-10-PCS; 2022-06-08)
DX: K92.2 Gastrointestinal hemorrhage, unspecified (principal); L89.213 Pressure ulcer of right hip, stage 3; E43 Unspecified severe protein-calorie malnutrition; L89.154 Pressure ulcer of sacral region, stage 4; L89.623 Pressure ulcer of left heel, stage 3; T83.511A Infection and inflammatory reaction due to indwelling urethral catheter, initial encounter; C71.9 Malignant neoplasm of brain, unspecified; D62 Acute posthemorrhagic anemia; Z68.1 Body mass index [BMI] 19.9 or less, adult; R78.81 Bacteremia; N39.0 Urinary tract infection, site not specified; Z20.822 Contact with and (suspected) exposure to COVID-19; F03.90 Unspecified dementia, unspecified severity, without behavioral disturbance, psychotic disturbance, mood disturbance, and anxiety; J44.9 Chronic obstructive pulmonary disease, unspecified; F17.210 Nicotine dependence, cigarettes, uncomplicated; N31.9 Neuromuscular dysfunction of bladder, unspecified; Z66 Do not resuscitate; D69.6 Thrombocytopenia, unspecified; I48.0 Paroxysmal atrial fibrillation; R33.9 Retention of urine, unspecified; D75.838 Other thrombocytosis; N18.9 Chronic kidney disease, unspecified; I12.9 Hypertensive chronic kidney disease with stage 1 through stage 4 chronic kidney disease, or unspecified chronic kidney disease; B95.62 Methicillin resistant Staphylococcus aureus infection as the cause of diseases classified elsewhere; L89.229 Pressure ulcer of left hip, unspecified stage; K31.819 Angiodysplasia of stomach and duodenum without bleeding; Z86.73 Personal history of transient ischemic attack (TIA), and cerebral infarction without residual deficits; Z79.01 Long term (current) use of anticoagulants; Z79.51 Long term (current) use of inhaled steroids; Z79.899 Other long term (current) drug therapy; Z79.82 Long term (current) use of aspirin; Z90.49 Acquired absence of other specified parts of digestive tract
CPT/HCPCS: 11042; 11043; 11046; 36415; 36430; 36569; 70450; 74177; 80053; 80202; 81003; 81015; 82607; 82728; 83540; 83690; 85014; 85018; 85025; 85610; 85730; 86850; 86900; 86901; 87040; 87077; 87086; 87149; 87186; 87324; 87449; 93005; 93010; 93306; 96365; 96366; 97139; 99203; C1751; C9113; G0463; J0696; J1644; J2270; J2354; J2543; J2704; J3370; J3490; J7050; P9016; Q9967; U0002

== ENCOUNTER 2022-06-14 19:26 | Inpatient (IN) | payer MEDICARE, MEDICAID ==
[2022-06-14 19:59] LABS: Bilirubin Negative (Negative); Blood, Urine 3+ (Negative); Clarity Extra Turbid (Clear); Glucose, Urine (Dipstick) Normal (Negative); Ketone, Urine Negative (Negative); Leukocyte 500 Leu/uL (Negative); Nitrite Negative (Negative); Protein, Urine (Dipstick) 50 mg/dL (Neg-Trace); Urobilinogen Normal mg/dL (Less than 2); pH, Urine 6.5 (5.0-9.0)
[2022-06-14 20:01] LABS: #Eosinphils 0.3 thou/uL (0.0-0.7); #Lymphocytes 1.8 thou/uL (1.20-3.40); #Monocytes 0.8 thou/uL (0.11-0.59); #Neutrophils 10.3 thou/uL (1.40-6.50); %Basophils 0.3 % (0.0-1.0); %Eosinophils 2.2 % (0.0-10.0); %Lymphocytes 13.8 % (21.0-51.0); %Monocytes 5.9 % (0.0-10.0); %Neutrophils 77.9 % (42.0-75.0); Mean Corpuscular HGB CONC 30.6 g/dL (32.0-36.0); Mean Corpuscular Hemoglobin 24.9 pg (27.0-31.0); Mean Corpuscular Volume 81.5 fL (78.0-98.0); Mean Platelet Volume 6.6 fL (7.4-10.4); Platelet Count 598 thou/uL (130-400); Red Blood Cell (RBC) Count 3.59 mill/uL (4.20-5.40); White Blood Cell (WBC) Count 13.2 thou/uL (4.8-10.8)
[2022-06-14 20:08] LABS: Bacteria/HPF 2+ HPF (None Seen); RBC/HPF Greater than 50 HPF (0-3); Squamous Epithelial 0-3 HPF (0-3); WBC/HPF 21-50 HPF (0-3); Yeast-Budding 2+ HPF (None Seen)
[2022-06-14 20:23] LABS: ALT (SGPT) 18 U/L (8-55); AST (SGOT) 24 U/L (5-34); Albumin 2.2 g/dL (3.4-4.8); Alkaline Phosphatase 123 U/L (40-110); Anion Gap 9 mmol/L (10-20); BUN (Urea Nitrogen) 15 mg/dL (9.8-20.1); Bilirubin, Total 0.4 mg/dL (0.2-1.2); Calc. Creatinine Clearance 0 mL/min (70-130); Calcium 8.4 mg/dL (7.8-10.44); Carbon Dioxide 32 mmol/L (23-31); Chloride 104 mmol/L (98-107); Estimated GFR 91; Globulin 4.2 g/dL (2.4-3.5); Glucose 94 mg/dL (83-110); Protein, Total 6.4 g/dL (5.8-8.1); Sodium 142 mmol/L (136-145)
[2022-06-14 20:31] LABS: #Eosinphils 0.3 thou/uL (0.0-0.7); #Lymphocytes 1.5 thou/uL (1.20-3.40); #Monocytes 0.6 thou/uL (0.11-0.59); #Neutrophils 9.5 thou/uL (1.40-6.50); %Basophils 0.1 % (0.0-1.0); %Eosinophils 2.7 % (0.0-10.0); %Lymphocytes 12.4 % (21.0-51.0); %Monocytes 4.9 % (0.0-10.0); %Neutrophils 79.9 % (42.0-75.0); Hemoglobin 8.2 g/dL (12.0-16.0); Mean Corpuscular HGB CONC 30.4 g/dL (32.0-36.0); Mean Corpuscular Hemoglobin 24.7 pg (27.0-31.0); Mean Corpuscular Volume 81.1 fL (78.0-98.0); Mean Platelet Volume 6.8 fL (7.4-10.4); Platelet Count 573 thou/uL (130-400); Red Blood Cell (RBC) Count 3.33 mill/uL (4.20-5.40); White Blood Cell (WBC) Count 11.9 thou/uL (4.8-10.8)
[2022-06-14 20:52] LABS: ALT (SGPT) 16 U/L (8-55); AST (SGOT) 23 U/L (5-34); Albumin 2.1 g/dL (3.4-4.8); Alkaline Phosphatase 117 U/L (40-110); Anion Gap 9 mmol/L (10-20); BUN (Urea Nitrogen) 15 mg/dL (9.8-20.1); Bilirubin, Total 0.4 mg/dL (0.2-1.2); Calc. Creatinine Clearance 0 mL/min (70-130); Calcium 8.1 mg/dL (7.8-10.44); Carbon Dioxide 31 mmol/L (23-31); Chloride 105 mmol/L (98-107); Estimated GFR 91; Globulin 3.9 g/dL (2.4-3.5); Glucose 96 mg/dL (83-110); Lipase 8 U/L (8-78); Sodium 142 mmol/L (136-145)
[2022-06-14 21:01] LABS: Potassium 2.9 mmol/L (3.5-5.1)
[2022-06-14] MEDS ORDERED: Cefepime 2 GM VIAL ONE (21:34)
[2022-06-14] MEDS ORDERED: NS 0.9% w/ 20 MEQ KCL 1,000 ML ONE (22:11)
[2022-06-14] MEDS ORDERED: HYDROcodone/Acetaminophen 5/325 mg Tablet PO PRN (22:41)
[2022-06-14] MEDS ORDERED: Acetaminophen 325 MG TAB PO PRN (22:41)
[2022-06-14] MEDS ORDERED: Ondansetron PF 4 MG/2 ML Vial IVP PRN (22:41)
[2022-06-14] MEDS ORDERED: Artificial Tear Sol 15 ML BOT EA EYE PRN (22:51)
[2022-06-14] MEDS ORDERED: Albuterol Sulfate 2.5 mg/3 ml Neb NEB PRN (22:51)
[2022-06-14 23:14] LABS: SARS-CoV-2 NAA Rapid Test Not Detected (NotDetected)
[2022-06-15 01:03] VITALS: BMI 23.9
[2022-06-15] MEDS: Potassium Chloride 20 MEQ in Premix Bag 1 BAG IVPB SCH ×2 (01:04→02:30)
[2022-06-15] MEDS: Lactated Ringer's 1,000 ML IV SCH ×2 (01:05→11:28)
[2022-06-15] MEDS: Vancomycin 1 GM in Premix Bag 1 BAG IVPB SCH ×2 (02:29→15:38)
[2022-06-15 08:01] LABS: #Eosinphils 0.2 thou/uL (0.0-0.7); #Lymphocytes 1.3 thou/uL (1.20-3.40); #Monocytes 0.8 thou/uL (0.11-0.59); #Neutrophils 11.8 thou/uL (1.40-6.50); %Basophils 0.3 % (0.0-1.0); %Eosinophils 1.4 % (0.0-10.0); %Lymphocytes 9.3 % (21.0-51.0); %Monocytes 5.5 % (0.0-10.0); %Neutrophils 83.4 % (42.0-75.0); Hemoglobin 7.9 g/dL (12.0-16.0); Mean Corpuscular HGB CONC 30.1 g/dL (32.0-36.0); Mean Corpuscular Hemoglobin 24.6 pg (27.0-31.0); Mean Corpuscular Volume 81.5 fL (78.0-98.0); Mean Platelet Volume 6.7 fL (7.4-10.4); Platelet Count 551 thou/uL (130-400); White Blood Cell (WBC) Count 14.1 thou/uL (4.8-10.8)
[2022-06-15 08:13] LABS: Anion Gap 9 mmol/L (10-20); BUN (Urea Nitrogen) 14 mg/dL (9.8-20.1); Calc. Creatinine Clearance 65 mL/min (70-130); Calcium 8.1 mg/dL (7.8-10.44); Carbon Dioxide 31 mmol/L (23-31); Chloride 107 mmol/L (98-107); Estimated GFR 91; Glucose 86 mg/dL (83-110); Potassium 3.3 mmol/L (3.5-5.1); Sodium 144 mmol/L (136-145)
[2022-06-15 08:29] LABS: Anisocytosis SLIGHT = 6-15 cells (100X) (0-5/hpf); MDiff Complete? YES; Platelet Morphology Comment Appears Increased; Polychromasia SLIGHT = 2-3 cells (100X) (0-2/hpf)
[2022-06-15 08:34] LABS: Anion Gap 9 mmol/L (10-20); BUN (Urea Nitrogen) 15 mg/dL (9.8-20.1); Calc. Creatinine Clearance 64 mL/min (70-130); Calcium 8.1 mg/dL (7.8-10.44); Carbon Dioxide 31 mmol/L (23-31); Chloride 106 mmol/L (98-107); Estimated GFR 91; Glucose 95 mg/dL (83-110); Potassium 3.3 mmol/L (3.5-5.1); Sodium 143 mmol/L (136-145)
[2022-06-15] MEDS ORDERED: Potassium Chloride 40 MEQ in Premix Bag 1 BAG IVPB SCH (09:00)
[2022-06-15] MEDS: Dronedarone HCl 400 MG TAB PO SCH ×2 (09:19→14:58)
[2022-06-15] MEDS: Aspirin 81 mg Enteric Coated Tablet PO SCH (09:19)
[2022-06-15] MEDS: Ascorbic Acid 500 mg Chewable Tablet PO SCH (09:19)
[2022-06-15] MEDS: Floranex 1 GM Packet PO SCH (09:19)
[2022-06-15] MEDS: Ferrous Sulfate 325 MG TAB PO SCH ×2 (09:19→14:58)
[2022-06-15] MEDS: Senokot S 8.6-50 MG TAB PO SCH (09:20)
[2022-06-15] MEDS: Polyethylene Glycol 3350 17 GM Packet PO SCH (09:20)
[2022-06-15] MEDS: Multivitamin W/ Minerals 1 TAB PO SCH (09:20)
[2022-06-15] MEDS: Zinc Sulfate 220 MG CAP PO SCH (09:20)
[2022-06-15] MEDS: Magnesium Oxide 400 MG TAB PO SCH (09:20)
[2022-06-15] MEDS: Gabapentin 300 MG CAP PO SCH ×2 (09:20→14:58)
[2022-06-15] MEDS: Cholecalciferol 1,000 UNITS (25 MCG) TAB PO SCH (09:20)
[2022-06-15] MEDS: Famotidine/PF 20 mg/2ml Vial SLOW IVP SCH (09:27)
[2022-06-15] MEDS: Enoxaparin Sodium 40 MG/0.4 ML SYRINGE SC SCH (09:27)
[2022-06-15] MEDS: Cefepime 1 GM in Sodium Chloride 0.9% 100 ML IVPB SCH ×2 (09:27→21:02)
[2022-06-15 10:45] LABS: #Eosinphils 0.1 thou/uL (0.0-0.7); #Monocytes 0.9 thou/uL (0.11-0.59); #Neutrophils 11.4 thou/uL (1.40-6.50); %Basophils 0.2 % (0.0-1.0); %Eosinophils 1.1 % (0.0-10.0); %Lymphocytes 7.1 % (21.0-51.0); %Monocytes 6.8 % (0.0-10.0); %Neutrophils 84.8 % (42.0-75.0); Hemoglobin 7.4 g/dL (12.0-16.0); Mean Corpuscular HGB CONC 30.3 g/dL (32.0-36.0); Mean Corpuscular Hemoglobin 24.5 pg (27.0-31.0); Mean Corpuscular Volume 80.9 fL (78.0-98.0); Platelet Count 508 thou/uL (130-400); RBC Distribution Width 19.8 % (11.5-14.5); Red Blood Cell (RBC) Count 3.02 mill/uL (4.20-5.40); White Blood Cell (WBC) Count 13.4 thou/uL (4.8-10.8)
[2022-06-15] MEDS: Mometasone 100 MCG/Formoterol 5 MCG 120 PUFF INHALER INH SCH ×2 (11:19→19:19)
[2022-06-16] MEDS: Famotidine/PF 20 mg/2ml Vial SLOW IVP SCH ×3 (00:32→22:08)
[2022-06-16] MEDS: Fluconazole In NaCl,Iso-Osm 200 MG in Premix Bag 1 BAG IVPB SCH (00:32)
[2022-06-16] MEDS: Gabapentin 300 MG CAP PO SCH ×3 (01:56→14:39)
[2022-06-16] MEDS: Atorvastatin Calcium 40 MG TAB PO SCH (01:56)
[2022-06-16] MEDS: Senokot S 8.6-50 MG TAB PO SCH ×2 (02:00→13:35)
[2022-06-16] MEDS: Magnesium Oxide 400 MG TAB PO SCH ×2 (02:00→13:34)
[2022-06-16] MEDS: Vancomycin 1 GM in Premix Bag 1 BAG IVPB SCH ×2 (02:25→14:42)
[2022-06-16] MEDS: Mometasone 100 MCG/Formoterol 5 MCG 120 PUFF INHALER INH SCH ×2 (08:03→18:32)
[2022-06-16] MEDS: Enoxaparin Sodium 40 MG/0.4 ML SYRINGE SC SCH (10:31)
[2022-06-16] MEDS: Cefepime 1 GM in Sodium Chloride 0.9% 100 ML IVPB SCH ×2 (10:31→22:07)
[2022-06-16] MEDS: Ferrous Sulfate 325 MG TAB PO SCH ×2 (13:33→17:33)
[2022-06-16] MEDS: Dronedarone HCl 400 MG TAB PO SCH ×2 (13:33→17:33)
[2022-06-16] MEDS: Ascorbic Acid 500 mg Chewable Tablet PO SCH (13:34)
[2022-06-16] MEDS: Aspirin 81 mg Enteric Coated Tablet PO SCH (13:34)
[2022-06-16] MEDS: Floranex 1 GM Packet PO SCH (13:34)
[2022-06-16] MEDS: Cholecalciferol 1,000 UNITS (25 MCG) TAB PO SCH (13:34)
[2022-06-16] MEDS: Multivitamin W/ Minerals 1 TAB PO SCH (13:35)
[2022-06-16] MEDS: Zinc Sulfate 220 MG CAP PO SCH (13:35)
[2022-06-16] MEDS: Polyethylene Glycol 3350 17 GM Packet PO SCH (13:35)
[2022-06-16 14:01] LABS: Vancomycin, Trough 34.9 ug/mL
[2022-06-17] MEDS: Gabapentin 300 MG CAP PO SCH ×2 (00:33→09:16)
[2022-06-17] MEDS: Atorvastatin Calcium 40 MG TAB PO SCH (00:33)
[2022-06-17] MEDS: Magnesium Oxide 400 MG TAB PO SCH ×2 (00:33→09:14)
[2022-06-17] MEDS: Senokot S 8.6-50 MG TAB PO SCH ×2 (00:34→09:16)
[2022-06-17] MEDS: Fluconazole In NaCl,Iso-Osm 200 MG in Premix Bag 1 BAG IVPB SCH (01:07)
[2022-06-17 01:42] LABS: Vancomycin, Random 28.4 ug/mL (See Comment)
[2022-06-17] MEDS ORDERED: Vancomycin 1 GM in Premix Bag 1 BAG IVPB SCH (02:00)
[2022-06-17] MEDS: Mometasone 100 MCG/Formoterol 5 MCG 120 PUFF INHALER INH SCH (07:33)
[2022-06-17] MEDS: Ascorbic Acid 500 mg Chewable Tablet PO SCH (09:14)
[2022-06-17] MEDS: Aspirin 81 mg Enteric Coated Tablet PO SCH (09:14)
[2022-06-17] MEDS: Zinc Sulfate 220 MG CAP PO SCH (09:15)
[2022-06-17] MEDS: Dronedarone HCl 400 MG TAB PO SCH (09:15)
[2022-06-17] MEDS: Famotidine/PF 20 mg/2ml Vial SLOW IVP SCH (09:16)
[2022-06-17] MEDS: Cefepime 1 GM in Sodium Chloride 0.9% 100 ML IVPB SCH (09:16)
[2022-06-17] MEDS: Cholecalciferol 1,000 UNITS (25 MCG) TAB PO SCH (09:16)
[2022-06-17] MEDS: Polyethylene Glycol 3350 17 GM Packet PO SCH (09:16)
[2022-06-17] MEDS: Multivitamin W/ Minerals 1 TAB PO SCH (09:16)
[2022-06-17] MEDS: Enoxaparin Sodium 40 MG/0.4 ML SYRINGE SC SCH (09:16)
[2022-06-17] MEDS: Floranex 1 GM Packet PO SCH (09:16)
[2022-06-17] MEDS: Ferrous Sulfate 325 MG TAB PO SCH (09:17)
[2022-06-17 10:20] VITALS: BP 168/74; TEMP 98.4
== END 2022-06-17 13:12 | disposition hospice, inpatient (51) | DRG 871 ==
LOC: ERS 19:26 → OBSVTOIN 22:25 → 2NO 22:25
PROVIDERS: ADMIT Internal Medicine; ATTEND Internal Medicine
DX: A41.02 Sepsis due to Methicillin resistant Staphylococcus aureus (principal); L89.214 Pressure ulcer of right hip, stage 4; L89.223 Pressure ulcer of left hip, stage 3; E43 Unspecified severe protein-calorie malnutrition; T83.511A Infection and inflammatory reaction due to indwelling urethral catheter, initial encounter; N30.00 Acute cystitis without hematuria; Z51.5 Encounter for palliative care; Z66 Do not resuscitate; Z20.822 Contact with and (suspected) exposure to COVID-19; J44.9 Chronic obstructive pulmonary disease, unspecified; I48.91 Unspecified atrial fibrillation; E87.6 Hypokalemia; L98.429 Non-pressure chronic ulcer of back with unspecified severity; F17.210 Nicotine dependence, cigarettes, uncomplicated; N18.9 Chronic kidney disease, unspecified; L89.620 Pressure ulcer of left heel, unstageable; R33.9 Retention of urine, unspecified; K59.00 Constipation, unspecified; N31.9 Neuromuscular dysfunction of bladder, unspecified; D32.9 Benign neoplasm of meninges, unspecified; Z87.440 Personal history of urinary (tract) infections; Z90.49 Acquired absence of other specified parts of digestive tract; Z79.899 Other long term (current) drug therapy; Z79.82 Long term (current) use of aspirin; Z79.51 Long term (current) use of inhaled steroids; Z68.24 Body mass index [BMI] 24.0-24.9, adult
CPT/HCPCS: 36415; 70450; 71045; 74177; 80048; 80053; 80202; 81003; 81015; 82140; 83690; 84443; 84484; 85025; 87040; 87077; 87086; 87149; 87186; 93005; 96365; 96367; 97139; J0692; J1450; J1650; J3370; J3480; J3490; J7120; Q9967; S0028